=== PATIENT | male | born 1945 | race Caucasian/White ===

== ENCOUNTER 2017-10-26 14:16 | Inpatient (IN) | payer MEDICARE, OTHER ==
[2017-10-26] MEDS ORDERED: SODIUM CHLORIDE 0.9% 1,000 ML IV ONE (14:44)
--- NOTE | 2017-10-26 14:47 | ED Physician Documentation ---
PD HPI DYSPNEA - Stated complaint Stated Complaint: DIFF BREATHING - Chief complaint Chief Complaint: Resp - History obtained from History obtained from: Patient, Family - History of Present Illness Timing - onset: Enter time (0200), How many days ago (2) Timing - onset during: Rest Timing - duration: Days (2) Timing - details: Gradual onset, Still present Inciting event(s): URI Improved by: Rest, Sitting up Worsened by: Exertion, Laying flat, Coughing Associated symptoms: Cough Similar symptoms before: Diagnosis (The patient has had bronchitis previously) Recently seen: Not recently seen - Additional information Additional information: 72-year-old male smoker who is on no medications regularly has developed a cough and congestion over the past 2 weeks and over the past 3 days he has become acutely dyspneic and today he comes to the emergency department with dyspnea and tachycardia. Review of Systems Constitutional: reports: Fever, Chills Eyes: denies: Decreased vision Ears: denies: Ear pain Nose: reports: Rhinorrhea / runny nose, Congestion Throat: denies: Sore throat Cardiac: reports: Chest pain / pressure. denies: Palpitations Respiratory: reports: Dyspnea, Cough GI: denies: Abdominal Pain, Nausea, Vomiting : denies: Dysuria PD PAST MEDICAL HISTORY - Past Medical History Past Medical History: No HEENT: Chronic hearing loss - Past Surgical History Past Surgical History: No - Present Medications Home Medications: Ambulatory Orders Medication Instructions Recorded Confirmed No Known Home Medications [No 10/26/17 10/26/17 Known Home Medications] - Allergies Allergies/Adverse Reactions: Allergies Allergy/AdvReac Type Severity Reaction Status Date / Time No Known Drug Allergies Allergy Verified 10/26/17 14:21 - Social History Does the pt smoke?: Yes Smoking Status: Current every day smoker Does the pt drink ETOH?: No Does the pt have substance abuse?: No - Immunizations Immunizations are current?: No - POLST Patient has POLST: No PD ED PE NORMAL - Vitals Vital signs reviewed: Yes (tachy ) - General General: Alert and oriented X 3, No acute distress, Well developed/nourished - HEENT HEENT: Atraumatic, PERRL, EOMI, Other (The left TM is clear the right is inflamed along the umbo and the umbo is rounded. ) - Neck Neck: Supple, no meningeal sign - Cardiac Cardiac: No murmur, Other (regular and tachy ) - Respiratory Respiratory: No respiratory distress, Other (diminished breath sounds and bibasiler rhonchi) - Abdomen Abdomen: Soft, Non tender - Back Back: No CVA TTP, No spinal TTP - Derm Derm: Normal color, Warm and dry, No rash - Extremities Extremities: No deformity, No edema, No calf tenderness / cord - Neuro Neuro: Alert and oriented X 3, advertising clerk 2-12 intact, No motor deficit, No sensory deficit, Normal speech Eye Opening: Spontaneous Motor: Obeys Commands Verbal: Oriented GCS Score: 15 - Psych Psych: Normal mood, Normal affect Results - Vitals Vitals: Vital Signs - 24 hr 10/26/17 10/26/17 14:21 15:23 Temperature 37.2 C Heart Rate 153 H 125 H Respiratory 20 18 Rate Blood Pressure 109/62 104/57 L O2 Saturation 94 92 Oxygen O2 Source Room air - EKG (time done) 1424 Rhythm: Sinus tachycardia (148), LAE QRS: Low voltage Other comments: Other comments (RV) Compare to prior EKG: Old EKG unavailable Computer interpretation: Agree with computer - Labs Labs: Laboratory Tests 10/26/17 10/26/17 10/26/17 14:38 14:38 14:38 WBC 16.8 H RBC 5.52 Hgb 17.0 Hct 50.0 MCV 90.6 MCH 30.8 MCHC 34.0 RDW 13.0 Plt Count 187 MPV 8.8 Neut # 14.6 H Lymph # 0.7 L Ziebach # 1.4 H Eos # 0.0 Baso # 0.0 Absolute Nucleated RBC 0.00 Nucleated RBC % 0.0 Sodium 129 L Potassium 4.1 Chloride 91 L Carbon Dioxide 23 Anion Gap 15.0 H BUN 20 Creatinine 1.1 Estimated GFR (MDRD) 66 L Glucose 126 H Calcium 8.8 Total Bilirubin 1.6 H AST 22 ALT 12 Alkaline Phosphatase 60 Troponin I < 0.04 B-Natriuretic Peptide Total Protein 7.5 Albumin 3.7 Globulin 3.8 Albumin/Globulin Ratio 1.0 Lipase 180 H 10/26/17 14:38 WBC RBC Hgb Hct MCV MCH MCHC RDW Plt Count MPV Neut # Lymph # Ziebach # Eos # Baso # Absolute Nucleated RBC Nucleated RBC % Sodium Potassium Chloride Carbon Dioxide Anion Gap BUN Creatinine Estimated GFR (MDRD) Glucose Calcium Total Bilirubin AST ALT Alkaline Phosphatase Troponin I B-Natriuretic Peptide 75 Total Protein Albumin Globulin Albumin/Globulin Ratio Lipase - Rads (name of study) 2 view chest Radiology: Prelim report reviewed (Impression: Multifocal infiltrates with masslike consolidation in the left upper lobe; follow-up is recommended to confirm complete clearing. CT scan may be helpful if clinical suspicion is high.), EMP read indepedently, See rad report Procedures - IVC sono (time) 1440 Bedside IVC sono: IVC measures (cm) (1.3), IVC collapsed c insp (cm) (complete) , Dehydration (est 1 ltier down.) PD MEDICAL DECISION MAKING - ED course Complexity details: reviewed results, re-evaluated patient, considered differential, d/w patient, d/w family ED course: 72-year-old male presents with acute dyspnea for 2 days duration with an upper respiratory tract infection. He is found to be in a sinus tachycardia and he is mildly dehydrated he is initially administered saline 1 L bolus and a two- view chest x-ray is obtained as well as blood work. IV is begun. He has extensive infiltrate on CXR and his tachycardia responds to a fluid bolus. Departure - Departure Disposition: [facility] DC/Xfer Clinical Impression: Dehydration Pneumonia Qualifiers: Pneumonia type: due to unspecified organism Laterality: left Lung location: upper lobe of lung Qualified Code(s): J18.1 - Lobar pneumonia, unspecified organism Condition: Serious
[2017-10-26 14:56] LABS: BASOPHILS % (AUTO) 0.3 %; LYMPHOCYTES # (AUTO) 0.7 10^3/uL (1.5-3.5); LYMPHOCYTES % (AUTO) 4.2 %; MEAN CORPUSCULAR HEMOGLOBIN 30.8 pg (27.0-31.0); MEAN CORPUSCULAR VOLUME 90.6 fL (80.0-94.0); MEAN PLATELET VOLUME 8.8 fL (7.4-11.4); MONOCYTES # (AUTO) 1.4 10^3/uL (0.0-1.0); MONOCYTES % (AUTO) 8.5 %; NEUTROPHILS # (AUTO) 14.6 10^3/uL (1.5-6.6); PLT - PLATELET COUNT 187 10^3/uL (130-450); RED BLOOD COUNT 5.52 10^6/uL (4.70-6.10); WHITE BLOOD COUNT 16.8 x10^3/uL (4.8-10.8)
[2017-10-26 15:13] LABS: ALBUMIN 3.7 g/dL (3.2-5.5); BILIRUBIN,TOTAL 1.6 mg/dL (0.2-1.0); CALCIUM 8.8 mg/dL (8.5-10.3); CREATININE 1.1 mg/dL (0.6-1.2); TOTAL PROTEIN 7.5 g/dL (6.7-8.2)
--- NOTE | 2017-10-26 15:32 | XRAY Report ---
EXAM: CHEST RADIOGRAPHY EXAM DATE: 10/26/2017 03:11 PM. CLINICAL HISTORY: Cough dyspnea bibasilar rhonchi. COMPARISON: None. TECHNIQUE: 2 views. FINDINGS: Lungs/Pleura: Hyperexpanded with flattened diaphragm typical for COPD. Prominent multifocal infiltrat es in the left upper lobe with masslike consolidation in the lateral left upper lung zone. Clear righ t lung. No definite effusion. No pneumothorax. Mediastinum: Heart and mediastinal contours are unremarkable. Upper lobe vessels not distended. Other: None. IMPRESSION: Multifocal infiltrates with masslike consolidation in the left upper lobe; follow-up is r ecommended to confirm complete clearing. CT scan may be helpful if clinical suspicion is high. REGGIE Referring Provider Line: [phone] SITE ID: [id number]
[2017-10-26] MEDS ORDERED: PROCHLORPERAZINE 10 MG/2 ML VIAL IVP PRN (16:16)
[2017-10-26] MEDS ORDERED: TEMAZEPAM 15 MG CAPSULE PO PRN (16:16)
[2017-10-26] MEDS ORDERED: oxyCODONE 5 MG TABLET PO PRN (16:16)
--- NOTE | 2017-10-26 16:43 | HISTORY & PHYSICAL EXAMINATION ---
Chief Complaint - Chief Complaint Chief Complaint: shortness of breath, cough History of Present Illness - Admitted From Admitted From:: Home - History of Present Illness HPI Comment/Other: Mr. Tobin Trevizo is a very pleasant 72-year-old male who has a history of cough for about 2 weeks. He has been having increasing shortness of breath as well in about 3-4 days ago the cough became very bad and he had a great deal of difficulty catching his breath. His son brought him into the emergency room today and he was found to have a left pneumonia via chest x-ray. He has white blood cell count of 16.8 and he is tachycardic. History - Past Medical History Cardiovascular: reports: None (Patient is remarkably healthy denies any past medical history of any significance. 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 - Substance History Use: Uses substance without health or social issues: NONE Dependence: Experiences withdrawal or developed tolerances: Tobacco Tobacco Details: Cigarettes - POLST Patient has POLST: No POLST Status: Full Code (The patient has been in recovery for 39 years) Meds/Allgy - Home Medications Home Medications: Ambulatory Orders Medication Instructions Recorded Confirmed No Known Home Medications [No 10/26/17 10/26/17 Known Home Medications] - Allergies Allergies/Adverse Reactions: Allergies Allergy/AdvReac Type Severity Reaction Status Date / Time No Known Drug Allergies Allergy Verified 10/26/17 14:21 Review of Systems - Constitutional Constitutional: reports: Chills, Weakness, Poor appetite. denies: Fatigue, Fever - Eyes Eyes: denies: Pain, Blurred vision, Dipolpia - Ears, Nose & Throat Ears, Nose & Throat: denies: Ear pain, Hearing loss, Tinnitus, Vertigo, Nasal discharge - Cardiovascular Cariovascular: denies: Irregular heart rate, Palpitations, Chest pain, Edema - Respiratory Respiratory: reports: Cough, Sputum production, SOB at rest, SOB with exertion. denies: Wheezing, Hemoptysis, Orthopnea - Gastrointestinal Gastrointestinal: denies: Abdominal pain, Abdominal distention, Constipation, Diarrhea, Change in bowel habits, Rectal bleeding - Genitourinary Genitourinary: denies: Dysuria, Frequency, Urgency, Hematuria - Musculoskeletal Musculoskeletal: denies: Muscle pain, Back pain, Muscle aches, Stiffness, Muscle weakness, Gout, Joint pain - Integumentary Integumentary: denies: Rash, Pruritis, Lesions, Dryness - Neurological Neurological: denies: General weakness, Focal weakness, Headache, Dizziness, Numbness, Memory problems, Abnormal gait - Psychiatric Psychiatric: denies: Depression, Anxiety, Suicidal, Delusions - Endocrine Endocrine: denies: Polyuria, Polydypsia, Polyphagia - Hematologic/Lymphatic Hematologic/Lymphatic: denies: Anemia, Bruising, Petechiae, Lymphadenopathy - All Other Systems All Other Systems: reports: Reviewed and negative Exam - Vital Signs Reviewed Vital Signs: Yes Vital Signs: Vital Signs x48h Temp Pulse Resp BP Pulse Ox 10/26/17 16:25 37.4 C 118 H 18 102/50 L 92 10/26/17 15:23 125 H 18 104/57 L 92 10/26/17 14:21 37.2 C 153 H 20 109/62 94 - Physical Exam General Appearance: positive: Alert, Mild distress Eyes Bilateral: positive: Normal inspection, PERRL, EOMI, No lid inflammation, Conjunctivae nml, No scleral icterus ENT: positive: ENT inspection nml, Pharynx nml, No signs of dehydration. negative: Purulent nasal drainage Neck: positive: Nml inspection, Thyroid nml, No JVD, Trachea midline. negative : Thyromegaly Respiratory: positive: Chest non-tender, Rhonchi. negative: Wheezes, Rales Cardiovascular: positive: Regular rate & rhythm, No murmur, No gallop. negative : Tachycardia Peripheral Pulses: positive: 1+ Abdomen: positive: Non-tender, No organomegaly, Nml bowel sounds, No distention. negative: Tenderness, Guarding, Rebound Back: positive: Nml inspection. negative: CVA tenderness (R), CVA tenderness (L ) Skin: positive: Color nml, No rash, Warm, Dry. negative: Cyanosis Extremities: positive: Non-tender, Full ROM, Nml appearance, No pedal edema Neurologic/Psychiatric: positive: Oriented x3, CN's nml (2-12), Motor nml, Sensation nml, Mood/affect nml Conclusion/Plan - Problem List (1) Pneumonia Conclusion/Plan: We will start the patient on ceftriaxone and azithromycin and give him IV fluids for rehydration. We will continue with nebulizer treatments and supplemental oxygen as needed.We will monitor chest x-rays and electrolytes and address any other issues as they arise. Qualifiers: Pneumonia type: due to unspecified organism Laterality: left Lung location: upper lobe of lung Qualified Code(s): J18.1 - Lobar pneumonia, unspecified organism (2) Dehydration Conclusion/Plan: We will gently rehydrate the patient. - Lab Results Lab results reviewed: Yes Fish Bones: 10/26/17 14:38 10/26/17 14:38 - Diagnostic Imaging Results Diagnostic Imaging Results: positive: Final report reviewed Diagnostic Imaging Results Comments: EXAM: CHEST RADIOGRAPHY EXAM DATE: 10/26/2017 03:11 PM. CLINICAL HISTORY: Cough dyspnea bibasilar rhonchi. COMPARISON: None. TECHNIQUE: 2 views. FINDINGS: Lungs/Pleura: Hyperexpanded with flattened diaphragm typical for COPD. Prominent multifocal infiltrates in the left upper lobe with masslike consolidation in the lateral left upper lung zone. Clear right lung. No definite effusion. No pneumothorax. Mediastinum: Heart and mediastinal contours are unremarkable. Upper lobe vessels not distended. Other: None. IMPRESSION: Multifocal infiltrates with masslike consolidation in the left upper lobe; follow-up is recommended to confirm complete clearing. CT scan may be helpful if clinical suspicion is high. - EKG Results EKG Interpreted Independently: Yes EKG Comparison: No prior EKG Core Measures - Anticipated LOS I expect patient to be DC'd or transferred within 96 hours.: Yes - DVT/VTE - Prophylaxis VTE/DVT Device ordered at admit?: Yes
[2017-10-26] MEDS ORDERED: SODIUM CHLORIDE 0.9% 250 ML IV ONE (18:24)
[2017-10-26] MEDS: AZITHROMYCIN INJ 500 MG in SODIUM CHLORIDE 0.9% 250 ML IV SCH (18:25)
[2017-10-26] MEDS ORDERED: SODIUM CHLORIDE FLUSH 0.9% 10 ML SYRINGE ONE (18:27)
[2017-10-26] MEDS ORDERED: IPRATROPIUM/ALBUTEROL 3 ML NEB INH PRN (19:00)
[2017-10-26] MEDS: cefTRIAXone 2 GM in SODIUM CHLORIDE 0.9% MINIBAG 100 ML IV SCH (19:30)
[2017-10-26] MEDS: D5.45NS W/20 MEQ KCL 1,000 ML IV SCH (20:20)
[2017-10-26] MEDS: SODIUM CHLORIDE FLUSH 0.9% 10 ML SYRINGE IVP SCH (20:23)
[2017-10-27] MEDS: D5.45NS W/20 MEQ KCL 1,000 ML IV SCH ×3 (04:31→19:21)
[2017-10-27] MEDS: SODIUM CHLORIDE FLUSH 0.9% 10 ML SYRINGE IVP SCH ×3 (04:32→20:04)
[2017-10-27 06:13] LABS: BASOPHILS % (AUTO) 0.1 %; HGB - HEMOGLOBIN 14.4 g/dL (14.0-18.0); LYMPHOCYTES # (AUTO) 0.5 10^3/uL (1.5-3.5); LYMPHOCYTES % (AUTO) 4.6 %; MEAN CORPUSCULAR HEMOGLOBIN 30.6 pg (27.0-31.0); MEAN CORPUSCULAR HGB CONC 33.3 g/dL (32.0-36.0); MEAN PLATELET VOLUME 9.7 fL (7.4-11.4); MONOCYTES # (AUTO) 0.9 10^3/uL (0.0-1.0); MONOCYTES % (AUTO) 8.5 %; NEUTROPHILS # (AUTO) 9.1 10^3/uL (1.5-6.6); NEUTROPHILS % (AUTO) 86.8 %; PLT - PLATELET COUNT 165 10^3/uL (130-450); RED CELL DISTRIBUTION WIDTH 13.2 % (12.0-15.0); WHITE BLOOD COUNT 10.4 x10^3/uL (4.8-10.8)
[2017-10-27 06:24] LABS: CALCIUM 7.8 mg/dL (8.5-10.3); CREATININE 0.8 mg/dL (0.6-1.2)
[2017-10-27] MEDS ORDERED: SODIUM CHLORIDE 0.9% 500 ML IV ONE ×2 (08:02→09:18)
[2017-10-27] MEDS ORDERED: ACETAMINOPHEN 325 MG TABLET PO PRN (08:03)
[2017-10-27] MEDS: POLYETHYLENE GLYCOL 3350 17 GM PACKET PO SCH (08:07)
[2017-10-27] MEDS: guaiFENesin 600 MG TABLET PO SCH ×2 (08:22→21:49)
[2017-10-27] MEDS: SODIUM CHLORIDE FLUSH 0.9% 10 ML SYRINGE IVP PRN ×2 (08:23→11:29)
[2017-10-27] MEDS ORDERED: IOPAMIDOL-300 100 ML VIAL ONE (12:32)
[2017-10-27] MEDS ORDERED: IOPAMIDOL-300 100 ML VIAL IVP ONE (12:53)
[2017-10-27] MEDS: IPRATROPIUM/ALBUTEROL 3 ML NEB INH SCH ×4 (15:24→19:35)
[2017-10-27] MEDS: cefTRIAXone 2 GM in SODIUM CHLORIDE 0.9% MINIBAG 100 ML IV SCH (17:01)
[2017-10-27] MEDS: AZITHROMYCIN INJ 500 MG in SODIUM CHLORIDE 0.9% 250 ML IV SCH (17:43)
[2017-10-27] MEDS: SODIUM CHLORIDE 0.9% 1,000 ML IV SCH (17:43)
--- NOTE | 2017-10-27 18:04 | PROVIDER PROGRESS NOTE ---
Assessment/Plan - Problem List (1) CAP (community acquired pneumonia) Qualifiers: Laterality: left Lung location: upper lobe of lung Qualified Code(s): J18.1 - Lobar pneumonia, unspecified organism Assessment/Plan: Patient presented with cough, shortness of breath, tachycardic with low grade fever. CXR showed multifocal infiltrates in the left upper lobe CT today shows extensive left upper lobe infiltrate Patient on 4L of O2 and continues to be tachypnic, tachycardic and borderline hypotensive WBC improved Patient states he feels better but still coughing Blood cx negative Ceftriaxone and Azithromycin day 2 Continue supplemental O2 Continue IVFs and IV abx Monitor (2) COPD exacerbation Assessment/Plan: Patient has emphysema and is a current smoker Patient placed on Duonebs and IV abx for COPD exacerbation Today will start prednisone On 3L O2 Slightly better today (3) Pulmonary nodule Assessment/Plan: [address] in left lower lobe Given history of tobacco abuse high likelihood of malignancy Patient will need outpatient biopsy Discussed with patient and his (4) Dehydration Assessment/Plan: Improving with IVfs Patient still borderline hypotensive Na improved but still low (5) Tobacco abuse Assessment/Plan: Patient counseled and offered nicotine patch - Current Meds Current Meds: Current Medications Generic Name Dose Route Start Last Admin Trade Name Freq PRN Reason Stop Dose Admin Albuterol/Ipratropium 3 ml 10/26/17 19:00 10/27/17 05:38 Duoneb INH 3 ml RTQ4H PRN Administration Wheezing Albuterol/Ipratropium 3 ml 10/27/17 10:00 10/27/17 15:25 Duoneb INH 3 ml RTQID CHARLES Administration Guaifenesin 600 mg 10/27/17 09:00 10/27/17 08:22 Mucinex PO 600 mg BID CHALRES Administration Azithromycin 500 mg/ Sodium 250 mls @ 250 mls/hr 10/26/17 19:00 10/27/17 17: 43 Chloride IV 250 mls/hr Q24H CHARLES Administration Ceftriaxone Sodium 2 gm/ 100 mls @ 200 mls/hr 10/26/17 18:00 10/27/17 17:43 Sodium Chloride IV Infused Q24H CHARLES Infusion Potassium Chloride/Dextrose/Sod Cl 1,000 mls @ 125 mls/hr 10/26/17 19:00 17:05 D5.45ns W/20 Meq Kcl IV 0 mls/hr .Q8H CHARLES Infusion Sodium Chloride 1,000 mls @ 125 mls/hr 10/27/17 18:00 10/27/17 17:43 Normal Saline 0.9% IV 125 mls/hr .Q8H CHARLES Administration Polyethylene Glycol 17 gm 10/27/17 09:00 10/27/17 08:07 Miralax PO Not Given DAILY CHARLES Sodium Chloride 10 ml 10/26/17 16:16 10/27/17 11:29 Normal Saline Flush 0.9% IVP 10 ml PRN PRN Administration NEEDED PER PROVIDER ORDERS Sodium Chloride 10 ml 10/26/17 22:00 10/27/17 13:38 Normal Saline Flush 0.9% IVP Not Given Q8HR CHARLES - Lab Result Fish Bone Diagrams: 10/27/17 05:18 10/27/17 05:18 - Diagnostic Imaging Results Diagnostic Imaging Results: Final report reviewed - Additional Planning Condition/Complexity: Guarded My Orders: My Active Orders 10/27/17 08:03 Acetaminophen [Tylenol] 650 mg PO Q4HR PRN 10/27/17 09:00 guaiFENesin [Mucinex] 600 mg PO BID 10/27/17 10:00 Ipratropium/Albuterol [Duoneb] 3 ml INH RTQID 10/27/17 13:00 Chest Angio (PE) [CT] Stat 10/27/17 18:00 Sodium Chloride 0.9% [Normal Saline 0.9%] 1,000 ml IV 125 mls/hr predniSONE [Deltasone] 40 mg PO DAILYWM Plan Discussed with:: Patient, Family Time Spent: 31-60 minutes Subjective - Subjective Patient Reports: Cough (Productive), Shortness of Breath (With exertion), Other (Generalized weakness, no fever or chills.) Nursing Reports: No Complaints Objective Vital Signs: Vital Signs - 24 hr 10/26/17 10/27/17 10/27/17 17:48 01:59 05:43 Temperature 37.0 C 36.7 C Heart Rate 118 H Heart Rate [ 123 H 116 H Brachial] Respiratory 20 18 20 Rate Blood Pressure [Left Brachial artery] Blood Pressure 109/64 128/44 L [Right Brachial artery] O2 Saturation 94 93 10/27/17 10/27/1718 07:48 07:58 09:16 Temperature 37.5 C 37.7 C H 37.0 C Heart Rate Heart Rate [ 122 H 120 H 119 H Brachial] Respiratory 18 24 22 Rate Blood Pressure 100/46 L 102/49 L [Left Brachial artery] Blood Pressure 97/46 L [Right Brachial artery] O2 Saturation 90 L 91 L 94 10/27/17 10/27/17 10/27/17 10:42 15:02 15:26 Temperature 37.1 C 37.2 C Heart Rate 113 H Heart Rate [ 112 H 106 H Brachial] Respiratory 23 22 22 Rate Blood Pressure 100/47 L [Left Brachial artery] Blood Pressure 106/46 L [Right Brachial artery] O2 Saturation 94 96 10/27/17 15:49 Temperature 36.7 C Heart Rate Heart Rate [ 106 H Brachial] Respiratory 24 Rate Blood Pressure [Left Brachial artery] Blood Pressure 106/46 L [Right Brachial artery] O2 Saturation 92 Oxygen O2 Source Nasal cannula I&O (Last 24 Hrs): Intake and Output Totals x24h 10/25/17 10/26/17 10/27/17 23:59 23:59 23:59 Intake Total 120.214 1355.667 Balance 949.948 9245.667 General: Alert, Cooperative, Moderate distress (Tachypnic and appears to be in respiratory distress) HEENT: Atraumatic, PERRLA, EOMI, Other (dry mucus membranes) Neck: Supple, No JVD, No thyromegaly, +2 carotid pulse wo bruit, No LAD Lymphatic: no adenopathy Neuro: Alert, Non Focal, CN 2-12 Grossly Intact, Oriented Times 3 Cardiovascular: Regular rate, No murmurs, Other (Tachycardic) Respiratory: Chest non-tender, Wheezes (Scattered bilaterally), Rales (right base), Rhonchi (Left lung upper lobe) Abdomen: Normal bowel sounds, Soft, No tenderness, No hepatospenomegaly Extremities: No clubbing, No cyanosis, No edema, Normal pulses Skin: No rashes, No breakdown, No significant lesion - Results Results: Laboratory Results WBC 10.4 x10^3/uL (4.8-10.8) 10/27/17 05:18 RBC 4.70 10^6/uL (4.70-6.10) 10/27/17 05:18 Hgb 14.4 g/dL (14.0-18.0) 10/27/17 05:18 Hct 43.2 % (42.0-52.0) 10/27/17 05:18 MCV 92.0 fL (80.0-94.0) 10/27/17 05:18 MCH 30.6 pg (27.0-31.0) 10/27/17 05:18 MCHC 33.3 g/dL (32.0-36.0) 10/27/17 05:18 RDW 13.2 % (12.0-15.0) 10/27/17 05:18 Plt Count 165 10^3/uL (130-450) 10/27/17 05:18 MPV 9.7 fL (7.4-11.4) 10/27/17 05:18 Neut # 9.1 10^3/uL (1.5-6.6) H 10/27/17 05:18 Lymph # 0.5 10^3/uL (1.5-3.5) L 10/27/17 05:18 [place] # 0.9 10^3/uL (0.0-1.0) 10/27/17 05:18 Eos # 0.0 10^3/uL (0.0-0.7) 10/27/17 05:18 Baso # 0.0 10^3/uL (0.0-0.1) 10/27/17 05:18 Absolute Nucleated RBC 0.00 x10^3/uL 10/27/17 05:18 Nucleated RBC % 0.0 /100WBC 10/27/17 05:18 Sodium 132 mmol/L (135-145) L 10/27/17 05:18 Potassium 4.4 mmol/L (3.5-5.0) 10/27/17 05:18 Chloride 99 mmol/L (101-111) L 10/27/17 05:18 Carbon Dioxide 24 mmol/L (21-32) 10/27/17 05:18 Anion Gap 9.0 (6-13) 10/27/17 05:18 BUN 17 mg/dL (6-20) 10/27/17 05:18 Creatinine 0.8 mg/dL (0.6-1.2) 10/27/17 05:18 Estimated GFR (MDRD) 95 (>89) 10/27/17 05:18 Glucose 139 mg/dL (70-100) H 10/27/17 05:18 Calcium 7.8 mg/dL (8.5-10.3) L 10/27/17 05:18 Total Bilirubin 1.6 mg/dL (0.2-1.0) H 10/26/17 14:38 AST 22 IU/L (10-42) 10/26/17 14:38 ALT 12 IU/L (10-60) 10/26/17 14:38 Alkaline Phosphatase 60 IU/L (42-121) 10/26/17 14:38 Troponin I < 0.04 ng/mL (<0.49) 10/26/17 14:38 B-Natriuretic Peptide 75 pg/mL (5-100) 10/26/17 14:38 Total Protein 7.5 g/dL (6.7-8.2) 10/26/17 14:38 Albumin 3.7 g/dL (3.2-5.5) 10/26/17 14:38 Globulin 3.8 g/dL (2.1-4.2) 10/26/17 14:38 Albumin/Globulin Ratio 1.0 (1.0-2.2) 10/26/17 14:38 Lipase 180 U/L (22-51) H 10/26/17 14:38
[2017-10-27] MEDS: predniSONE 20 MG TABLET PO SCH (19:24)
--- NOTE | 2017-10-27 19:32 | CT Report ---
DATE OF SERVICE: 10/27/2017 CT PULMONARY ANGIOGRAM: 10/27/2017 CLINICAL INDICATION: Respiratory distress, hypoxia. Axial CT images of the chest were obtained with 66 mL of Isovue 300 intravenously. Sagittal and coronal 3-D reconstructions were performed. COMPARISON: Chest x-ray 10/26/2017. Heart and great vessels demonstrate atherosclerotic calcification. Mild left hilar and mediastinal lymphadenopathy is present, likely reactive. There is extensive consolidation in the posterior left upper lobe and lingula, superimposed upon background emphysema. A small left pleural effusion is present. There is opacification of bronchi in the left lower lobe, likely representing mucous plugging. There is no evidence of pulmonary embolus. There is a 10 mm nodule in the posterolateral left lower lobe subpleurally (axial image 147). No pneumothorax is present. Limited evaluation of upper abdominal structures demonstrates normal adrenal glands. Osseous structures demonstrate degenerative changes. IMPRESSION: Extensive left upper lobe infiltrate, with likely reactive adenopathy. Small left effusion. Emphysema. A 10 mm left lower lobe nodule. Followup following resolution of the pneumonia is recommended. Given the size, consider PET/CT scan to evaluate for metabolic activity. TD: 10/27/2017 20:23
[2017-10-28] MEDS: SODIUM CHLORIDE 0.9% 1,000 ML IV SCH ×3 (02:33→20:28)
[2017-10-28] MEDS: SODIUM CHLORIDE FLUSH 0.9% 10 ML SYRINGE IVP SCH ×3 (02:59→19:06)
[2017-10-28 06:21] LABS: HGB - HEMOGLOBIN 13.2 g/dL (14.0-18.0); LYMPHOCYTES # (AUTO) 0.4 10^3/uL (1.5-3.5); LYMPHOCYTES % (AUTO) 4.1 %; MEAN CORPUSCULAR HEMOGLOBIN 30.3 pg (27.0-31.0); MEAN CORPUSCULAR VOLUME 91.8 fL (80.0-94.0); MONOCYTES # (AUTO) 0.8 10^3/uL (0.0-1.0); MONOCYTES % (AUTO) 7.6 %; NEUTROPHILS # (AUTO) 8.8 10^3/uL (1.5-6.6); NEUTROPHILS % (AUTO) 88.3 %; PLT - PLATELET COUNT 162 10^3/uL (130-450); RED BLOOD COUNT 4.36 10^6/uL (4.70-6.10); RED CELL DISTRIBUTION WIDTH 13.3 % (12.0-15.0)
[2017-10-28 06:31] LABS: CALCIUM 7.4 mg/dL (8.5-10.3); CREATININE 0.6 mg/dL (0.6-1.2)
[2017-10-28] MEDS: IPRATROPIUM/ALBUTEROL 3 ML NEB INH SCH ×4 (08:00→18:31)
[2017-10-28] MEDS: D5.45NS W/20 MEQ KCL 1,000 ML IV SCH (08:43)
[2017-10-28] MEDS: predniSONE 20 MG TABLET PO SCH (08:45)
[2017-10-28] MEDS: guaiFENesin 600 MG TABLET PO SCH ×2 (08:45→20:28)
[2017-10-28] MEDS: POLYETHYLENE GLYCOL 3350 17 GM PACKET PO SCH (08:46)
[2017-10-28] MEDS: cefTRIAXone 2 GM in SODIUM CHLORIDE 0.9% MINIBAG 100 ML IV SCH (17:26)
--- NOTE | 2017-10-28 17:47 | PROVIDER PROGRESS NOTE ---
Assessment/Plan - Problem List (1) CAP (community acquired pneumonia) Qualifiers: Laterality: left Lung location: upper lobe of lung Qualified Code(s): J18.1 - Lobar pneumonia, unspecified organism Assessment/Plan: Patient presented with cough, shortness of breath, tachycardic with low grade fever. CXR showed multifocal infiltrates in the left upper lobe CT today shows extensive left upper lobe infiltrate Patient feeling much better today down to 1L of O2 WBC improved but patient still having a lot of coughing BP improved Blood cx negative Ceftriaxone and Azithromycin day 3 Continue supplemental O2 Continue IVFs and IV abx Monitor (2) COPD exacerbation Assessment/Plan: Patient has emphysema and is a current smoker Patient placed on Duonebs, IV abx and prednisone for COPD exacerbation On 1L O2 Improving (3) Pulmonary nodule Assessment/Plan: [address] in left lower lobe Given history of tobacco abuse high likelihood of malignancy Patient will need outpatient biopsy Discussed with patient and his (4) Dehydration Assessment/Plan: Improving with IVfs BP improved today Na improved (5) Tobacco abuse Assessment/Plan: Patient counseled and offered nicotine patch - Current Meds Current Meds: Current Medications Generic Name Dose Route Start Last Admin Trade Name Freq PRN Reason Stop Dose Admin Albuterol/Ipratropium 3 ml 10/26/17 19:00 10/27/17 05:38 Duoneb INH 3 ml RTQ4H PRN Administration Wheezing Albuterol/Ipratropium 3 ml 10/27/17 10:00 10/28/17 15:18 Duoneb INH 3 ml RTQID CHARLES Administration Guaifenesin 600 mg 10/27/17 09:00 10/28/17 08:45 Mucinex PO 600 mg BID CHARLES Administration Azithromycin 500 mg/ Sodium 250 mls @ 250 mls/hr 10/26/17 19:00 10/27/17 18: 45 Chloride IV Infused Q24H CHARLES Infusion Ceftriaxone Sodium 2 gm/ 100 mls @ 200 mls/hr 10/26/17 18:00 10/28/17 17:26 Sodium Chloride IV 200 mls/hr Q24H CHARLES Administration Sodium Chloride 1,000 mls @ 125 mls/hr 10/27/17 18:00 10/28/17 17:29 Normal Saline 0.9% IV 0 mls/hr .Q8H CHARLES Infusion Polyethylene Glycol 17 gm 10/27/17 09:00 10/28/17 08:46 Miralax PO Not Given DAILY CHARLES Prednisone 40 mg 10/27/17 18:00 10/28/17 08:45 Deltasone PO 40 mg DAILYWM CHARLES Administration Sodium Chloride 10 ml 10/26/17 16:16 10/27/17 11:29 Normal Saline Flush 0.9% IVP 10 ml PRN PRN Administration NEEDED PER PROVIDER ORDERS Sodium Chloride 10 ml 10/26/17 22:00 10/28/17 12:01 Normal Saline Flush 0.9% IVP Not Given Q8HR CHARLES - Lab Result Fish Bone Diagrams: 10/28/17 05:50 10/28/17 05:50 - Diagnostic Imaging Results Diagnostic Imaging Results: Final report reviewed - Additional Planning Condition/Complexity: Improved My Orders: My Active Orders 10/27/17 18:00 Sodium Chloride 0.9% [Normal Saline 0.9%] 1,000 ml IV 125 mls/hr predniSONE [Deltasone] 40 mg PO DAILYWM 10/28/17 08:30 Echo Transthoracic Complete [ECHO] Routine Plan Discussed with:: Patient Time Spent: 31-60 minutes Subjective - Subjective Patient Reports: Feeling Better, Resting Comfortably, Cough (Still persistent), Shortness of Breath (improved) Nursing Reports: No Complaints Objective Vital Signs: Vital Signs - 24 hr 10/27/17 10/27/17 10/27/17 19:35 20:02 23:50 Temperature 37.1 C 36.9 C Heart Rate 108 H Heart Rate [ 114 H 99 Brachial] Respiratory 16 20 18 Rate Blood Pressure 104/40 L 99/49 L [Left Brachial artery] O2 Saturation 94 94 10/28/17 10/28/17 10/28/17 08:00 08:43 11:25 Temperature 36.5 C Heart Rate 95 96 Heart Rate [ 85 Brachial] Respiratory 20 18 20 Rate Blood Pressure 90/52 L [Left Brachial artery] O2 Saturation 94 10/28/17 10/28/17 15:18 15:40 Temperature 36.7 C Heart Rate 93 Heart Rate [ 98 Brachial] Respiratory 18 24 Rate Blood Pressure 111/52 L [Left Brachial artery] O2 Saturation 94 Oxygen O2 Source Nasal cannula I&O (Last 24 Hrs): Intake and Output Totals x24h 10/26/17 10/27/17 10/28/17 23:59 23:59 23:59 Intake Total 693.978 2969.667 4772.916 Balance 760.853 8294.667 1372.916 General: Alert, Oriented x3, Cooperative, Mild distress (respiratory with coughing) HEENT: Atraumatic, PERRLA, EOMI, Mucous membr. moist/pink Neck: Supple, No JVD, No thyromegaly, +2 carotid pulse wo bruit, No LAD Lymphatic: no adenopathy Neuro: Alert, Non Focal, CN 2-12 Grossly Intact, Oriented Times 3 Cardiovascular: Regular rate, Normal S1, Normal S2, No murmurs Respiratory: Chest non-tender, Wheezes (scattered), Rales (bases), Rhonchi ( left upper lung) Abdomen: Normal bowel sounds, Soft, No tenderness, No hepatospenomegaly Extremities: No clubbing, No cyanosis, No edema, Normal pulses, No tenderness/ swelling Skin: No rashes, No breakdown - Results Results: Laboratory Results WBC 10.0 x10^3/uL (4.8-10.8) 10/28/17 05:50 RBC 4.36 10^6/uL (4.70-6.10) L 10/28/17 05:50 Hgb 13.2 g/dL (14.0-18.0) L 10/28/17 05:50 Hct 40.0 % (42.0-52.0) L 10/28/17 05:50 MCV 91.8 fL (80.0-94.0) 10/28/17 05:50 MCH 30.3 pg (27.0-31.0) 10/28/17 05:50 MCHC 33.0 g/dL (32.0-36.0) 10/28/17 05:50 RDW 13.3 % (12.0-15.0) 10/28/17 05:50 Plt Count 162 10^3/uL (130-450) 10/28/17 05:50 MPV 9.0 fL (7.4-11.4) 10/28/17 05:50 Neut # 8.8 10^3/uL (1.5-6.6) H 10/28/17 05:50 Lymph # 0.4 10^3/uL (1.5-3.5) L 10/28/17 05:50 [place] # 0.8 10^3/uL (0.0-1.0) 10/28/17 05:50 Eos # 0.0 10^3/uL (0.0-0.7) 10/28/17 05:50 Baso # 0.0 10^3/uL (0.0-0.1) 10/28/17 05:50 Absolute Nucleated RBC 0.00 x10^3/uL 10/28/17 05:50 Nucleated RBC % 0.0 /100WBC 10/28/17 05:50 Sodium 132 mmol/L (135-145) L 10/28/17 05:50 Potassium 4.2 mmol/L (3.5-5.0) 10/28/17 05:50 Chloride 102 mmol/L (101-111) 10/28/17 05:50 Carbon Dioxide 23 mmol/L (21-32) 10/28/17 05:50 Anion Gap 7.0 (6-13) 10/28/17 05:50 BUN 14 mg/dL (6-20) 10/28/17 05:50 Creatinine 0.6 mg/dL (0.6-1.2) 10/28/17 05:50 Estimated GFR (MDRD) 132 (>89) 10/28/17 05:50 Glucose 140 mg/dL (70-100) H 10/28/17 05:50 Calcium 7.4 mg/dL (8.5-10.3) L 10/28/17 05:50 Total Bilirubin 1.6 mg/dL (0.2-1.0) H 10/26/17 14:38 AST 22 IU/L (10-42) 10/26/17 14:38 ALT 12 IU/L (10-60) 10/26/17 14:38 Alkaline Phosphatase 60 IU/L (42-121) 10/26/17 14:38 Troponin I < 0.04 ng/mL (<0.49) 10/26/17 14:38 B-Natriuretic Peptide 75 pg/mL (5-100) 10/26/17 14:38 Total Protein 7.5 g/dL (6.7-8.2) 10/26/17 14:38 Albumin 3.7 g/dL (3.2-5.5) 10/26/17 14:38 Globulin 3.8 g/dL (2.1-4.2) 10/26/17 14:38 Albumin/Globulin Ratio 1.0 (1.0-2.2) 10/26/17 14:38 Lipase 180 U/L (22-51) H 10/26/17 14:38
[2017-10-28] MEDS: AZITHROMYCIN INJ 500 MG in SODIUM CHLORIDE 0.9% 250 ML IV SCH (18:06)
[2017-10-29] MEDS: SODIUM CHLORIDE FLUSH 0.9% 10 ML SYRINGE IVP SCH (04:41)
[2017-10-29] MEDS: SODIUM CHLORIDE 0.9% 1,000 ML IV SCH (05:05)
[2017-10-29 06:20] LABS: BASOPHILS % (AUTO) 0.1 %; EOSINOPHILS % (AUTO) 0.1 %; HGB - HEMOGLOBIN 12.8 g/dL (14.0-18.0); LYMPHOCYTES # (AUTO) 1.1 10^3/uL (1.5-3.5); LYMPHOCYTES % (AUTO) 9.2 %; MEAN CORPUSCULAR HEMOGLOBIN 30.4 pg (27.0-31.0); MEAN CORPUSCULAR HGB CONC 33.3 g/dL (32.0-36.0); MEAN CORPUSCULAR VOLUME 91.2 fL (80.0-94.0); MONOCYTES # (AUTO) 1.1 10^3/uL (0.0-1.0); MONOCYTES % (AUTO) 9.2 %; NEUTROPHILS # (AUTO) 9.4 10^3/uL (1.5-6.6); NEUTROPHILS % (AUTO) 81.4 %; PLT - PLATELET COUNT 192 10^3/uL (130-450); WHITE BLOOD COUNT 11.5 x10^3/uL (4.8-10.8)
[2017-10-29 06:23] LABS: CALCIUM 7.3 mg/dL (8.5-10.3); CREATININE 0.6 mg/dL (0.6-1.2)
[2017-10-29] MEDS: IPRATROPIUM/ALBUTEROL 3 ML NEB INH SCH (07:56)
[2017-10-29] MEDS: predniSONE 20 MG TABLET PO SCH (08:25)
[2017-10-29] MEDS: guaiFENesin 600 MG TABLET PO SCH (08:25)
[2017-10-29] MEDS: POLYETHYLENE GLYCOL 3350 17 GM PACKET PO SCH (08:25)
--- NOTE | 2017-10-29 11:12 | Discharge Plan ---
Discharge Plan Disposition: Home, Self Care Condition: Fair Prescriptions: Albuterol Sulfate [Proair Respiclick] 90 mcg IH Q4HR PRN #1 aer.pow.ba PRN Reason: Dyspnea Fluticasone/Salmeterol [Advair 250-50 Diskus] 1 each IH BID #1 blst.w.dev guaiFENesin [Mucinex] 600 mg PO BID #30 tablet Levofloxacin [Levaquin] 500 mg PO DAILY #7 tablet predniSONE [Deltasone] 40 mg PO DAILYWM #20 tablet Diet: Regular Activity Restrictions: Activity as Tolerated Shower Restrictions: No Driving Restrictions: No Weight Bearing: Full Weight Additional Instructions or Follow Up instructions: You presented to the emergency department with shortness of breath and coughing. He was found to have a left upper lobe pneumonia and a COPD exacerbation. You have been treated in the hospital with IV antibiotics and steroids as well as nebulizer treatments. You have improved significantly but are still requiring oxygen. We are setting up home oxygen for you. You will need to use 2 L of home oxygen at rest and 4 L with exertion. We have also prescribed you an antibiotic called Levaquin which she will need to take for 7 days to complete treatment for pneumonia. You are also being prescribed prednisone which is a steroid and will help with your COPD he will need to take this for 10 days. In addition to this you are being prescribed albuterol inhaler which you should take as needed when you become increasingly short of breath or start wheezing. You are also being prescribed Advair which is a new medication for you that you should take twice a day to keep her lungs open and to make it easier for you to breathe going forward. I have also prescribed you Mucinex which is a cough suppressant to help with your coughing. While you were hospitalized we did do a CT of your chest which did reveal a 10 mm nodule in your left lower lung. This lesion is concerning for the possibility of malignancy and therefore needs to be biopsied. You need to follow-up with your primary care physician to set up a biopsy for this lesion. [place] to set up an appointment as soon as possible. I strongly recommend that you never smoke again. No Smoking: If you smoke, Please STOP! Call for help.
--- NOTE | 2017-10-29 12:11 | DISCHARGE SUMMARY ---
Discharge Summary Admit Date: 10/26/17 Discharge Date: 10/29/17 Discharging Provider: Christo Meyers MD Primary Care Provider: Neal Soto MD Code Status: Attempt Resuscitation Condition at Discharge: Fair Discharge Disposition: Home, Self Care - DIAGNOSES Admission Diagnoses: 1. Pneumonia 2. Dehydration Discharge Diagnoses with Status of Each Condition: 1. Community acquired pneumonia: Improving 2. COPD exacerbation: Improving 3. Pulmonary nodule: Stable 4. Dehydration: Improved 5. Tobacco abuse: Stable - HPI History of Present Illness: Mr. Tobin Trevizo is a very pleasant 72-year-old male who has a history of cough for about 2 weeks. He has been having increasing shortness of breath as well in about 3-4 days ago the cough became very bad and he had a great deal of difficulty catching his breath. His son brought him into the emergency room today and he was found to have a left pneumonia via chest x-ray. He has white blood cell count of 16.8 and he is tachycardic. We will start the patient on ceftriaxone and azithromycin and give him IV fluids for rehydration. We will continue with nebulizer treatments and supplemental oxygen as needed.We will monitor chest x-rays and electrolytes and address any other issues as they arise. - HOSPITAL COURSE Hospital Course: The patient presented with cough, shortness of air, tachycardia and low-grade fever. The patient's chest x-ray showed multifocal infiltrates in the left upper lobe. After initial treatment with IV antibiotics ceftriaxone and azithromycin the patient was not showing significant improvement and was requiring increasing amount of oxygen, was tachycardic and had a borderline blood pressure. CT angiogram of the lungs was ordered which showed extensive left upper lobe infiltrate and a 10 mm nodule in the left lower lobe. Patient was also started on prednisone, duo nebs and continued on IV antibiotics after day 2 the patient had significant improvement and was requiring less oxygen with decreasing shortness of air and coughing. The patient's tachycardia, tachypnea and blood pressure also improved. By day 3 the patient felt well enough to go home. Prior to discharge the patient did get tested for home O2. Patient was hypoxic at rest, with room air O2 sats of 88%, at rest with O2 at 2 L/min via nasal cannula the patient's sats improved to 92%. With exertion on 3 L/min nasal cannula the patient sat was 86% and finally on 4 L/min with exertion the patient sat was improved to 90%. I ordered home O2 at 2 L/min via nasal cannula at rest, and 4 L/min with exertion. The oxygen will be needed to treat his hypoxia from COPD and resolving pneumonia. The patient was discharged home with oral antibiotic Levaquin which he will continue for 7 additional days. He was also prescribed oral prednisone which she will take for 10 more days. The patient was given prescription for Advair and for albuterol as well as for Mucinex. The patient will follow up with a primary care physician in [place]. [place]. He will need to follow-up not only to ensure resolution of his pneumonia but also to be referred for PET CT and possible biopsy of his 10 mm lung nodule in his left lower lung. The patient was advised to quit smoking and we did explain to him that the pulmonary nodule could possibly be malignancy. - ALLERGIES Allergies/Adverse Reactions: Allergies Allergy/AdvReac Type Severity Reaction Status Date / Time No Known Drug Allergies Allergy Verified 10/26/17 14:21 - MEDICATIONS Home Medications: Ambulatory Orders Medication Instructions Recorded Confirmed Albuterol Sulfate [Proair 90 mcg IH Q4HR PRN #1 aer.pow.ba 10/29/17 Respiclick] Fluticasone/Salmeterol [Advair 1 each IH BID #1 blst.w.dev 10/29/17 250-50 Diskus] Levofloxacin [Levaquin] 500 mg PO DAILY #7 tablet 10/29/17 guaiFENesin [Mucinex] 600 mg PO BID #30 tablet 10/29/17 predniSONE [Deltasone] 40 mg PO DAILYWM #20 tablet 10/29/17 - PHYSICAL EXAM AT DISCHARGE General Appearance: positive: No acute distress, Alert Eyes Bilateral: positive: Normal inspection, PERRL, EOMI, No lid inflammation, Conjunctivae nml, No scleral icterus ENT: positive: ENT inspection nml, Pharynx nml, No signs of dehydration. negative: Purulent nasal drainage, Pharyngeal erythema, Oral lesions Neck: positive: Nml inspection, Thyroid nml, No JVD, Trachea midline. negative : Thyromegaly, Lymphadenopathy (R), Lymphadenopathy (L), Stiff neck, Carotid bruit, Tracheal deviation Respiratory: positive: Chest non-tender, No respiratory distress, Wheezes ( Scattered throughout lungs), Rhonchi (Left upper lobe) Cardiovascular: positive: No murmur, No gallop, Tachycardia Peripheral Pulses: positive: 2+ Abdomen: positive: Non-tender, No organomegaly, Nml bowel sounds, No distention. negative: Guarding, Rebound, Hepatomegaly Back: positive: Nml inspection. negative: CVA tenderness (R), CVA tenderness (L ) Skin: positive: Color nml, No rash, Warm. negative: Cyanosis, Diaphoresis Extremities: positive: Non-tender, Full ROM, Nml appearance, No pedal edema Neurologic/Psychiatric: positive: Oriented x3, CN's nml (2-12), Motor nml, Sensation nml, Mood/affect nml - LABS Result Diagrams: 10/29/17 05:29 10/29/17 05:29 Other Lab Results: Laboratory Results WBC 11.5 x10^3/uL (4.8-10.8) H 10/29/17 05: RBC 4.20 10^6/uL (4.70-6.10) L 10/29/17 05:29 Hgb 12.8 g/dL (14.0-18.0) L 10/29/17 05: Hct 38.3 % (42.0-52.0) L 10/29/17 05: MCV 91.2 fL (80.0-94.0) 10/29/17 05: MCH 30.4 pg (27.0-31.0) 10/29/17 05: MCHC 33.3 g/dL (32.0-36.0) 10/29/17 05: RDW 13.0 % (12.0-15.0) 10/29/17 05:29 Plt Count 192 10^3/uL (130-450) 10/29/17 05:29 MPV 9.0 fL (7.4-11.4) 10/29/17 05: Neut # 9.4 10^3/uL (1.5-6.6) H 10/29/17 05: Lymph # 1.1 10^3/uL (1.5-3.5) L 10/29/17 05:29 [place] # 1.1 10^3/uL (0.0-1.0) H 10/29/17 05:29 Eos # 0.0 10^3/uL (0.0-0.7) 10/29/17 05:29 Baso # 0.0 10^3/uL (0.0-0.1) 10/29/17 05:29 Absolute Nucleated RBC 0.01 x10^3/uL 10/29/17 05:29 Nucleated RBC % 0.0 /100WBC 10/29/17 05:29 Sodium 133 mmol/L (135-145) L 10/29/17 05:29 Potassium 3.5 mmol/L (3.5-5.0) 10/29/17 05:29 Chloride 101 mmol/L (101-111) 10/29/17 05:29 Carbon Dioxide 25 mmol/L (21-32) 10/29/17 05:29 Anion Gap 7.0 (6-13) 10/29/17 05:29 BUN 14 mg/dL (6-20) 10/29/17 05:29 Creatinine 0.6 mg/dL (0.6-1.2) 10/29/17 05:29 Estimated GFR (MDRD) 132 (>89) 10/29/17 05:29 Glucose 103 mg/dL (70-100) H 10/29/17 05:29 Calcium 7.3 mg/dL (8.5-10.3) L 10/29/17 05:29 Total Bilirubin 1.6 mg/dL (0.2-1.0) H 10/26/17 14:38 AST 22 IU/L (10-42) 10/26/17 14:38 ALT 12 IU/L (10-60) 10/26/17 14:38 Alkaline Phosphatase 60 IU/L (42-121) 10/26/17 14:38 Troponin I < 0.04 ng/mL (<0.49) 10/26/17 14:38 B-Natriuretic Peptide 75 pg/mL (5-100) 10/26/17 14:38 Total Protein 7.5 g/dL (6.7-8.2) 10/26/17 14:38 Albumin 3.7 g/dL (3.2-5.5) 10/26/17 14:38 Globulin 3.8 g/dL (2.1-4.2) 10/26/17 14:38 Albumin/Globulin Ratio 1.0 (1.0-2.2) 10/26/17 14:38 Lipase 180 U/L (22-51) H 10/26/17 14:38 - DIAGNOSTIC IMAGING Diagnostic Imaging Results: Final report reviewed Diagnostic Imaging Results Comments: CHEST RADIOGRAPHY EXAM DATE: 10/26/2017 03:11 PM. CLINICAL HISTORY: Cough dyspnea bibasilar rhonchi. COMPARISON: None. TECHNIQUE: 2 views. FINDINGS: Lungs/Pleura: Hyperexpanded with flattened diaphragm typical for COPD. Prominent multifocal infiltrates in the left upper lobe with masslike consolidation in the lateral left upper lung zone. Clear right lung. No definite effusion. No pneumothorax. Mediastinum: Heart and mediastinal contours are unremarkable. Upper lobe vessels not distended. Other: None. IMPRESSION: Multifocal infiltrates with masslike consolidation in the left upper lobe; follow-up is recommended to confirm complete clearing. CT scan may be helpful if clinical suspicion is high. EXAM: [id number] CT/CHTANG ([id number]) DATE OF SERVICE: 10/27/2017 CT PULMONARY ANGIOGRAM: 10/27/2017 CLINICAL INDICATION: Respiratory distress, hypoxia. Axial CT images of the chest were obtained with 66 mL of Isovue 300 intravenously. Sagittal and coronal 3-D reconstructions were performed. COMPARISON: Chest x-ray 10/26/2017. Heart and great vessels demonstrate atherosclerotic calcification. Mild left hilar and mediastinal lymphadenopathy is present, likely reactive. There is extensive consolidation in the posterior left upper lobe and lingula, superimposed upon background emphysema. A small left pleural effusion is present. There is opacification of bronchi in the left lower lobe, likely representing mucous plugging. There is no evidence of pulmonary embolus. There is a 10 mm nodule in the posterolateral left lower lobe subpleurally (axial image 147). No pneumothorax is present. Limited evaluation of upper abdominal structures demonstrates normal adrenal glands. Osseous structures demonstrate degenerative changes. IMPRESSION: Extensive left upper lobe infiltrate, with likely reactive adenopathy. Small left effusion. Emphysema. A 10 mm left lower lobe nodule. Followup following resolution of the pneumonia is recommended. Given the size, consider PET/CT scan to evaluate for metabolic activity. Echocardiogram Impression: The left ventricular size is normal. The left ventricular wall thickness is normal. Overall left ventricular systolic function is normal with a ejection fraction of 55-60%. Impaired relaxation consistent with grade 1 diastolic dysfunction. No regional wall motion abnormalities are seen. The right ventricular size is normal. The right ventricular systolic function is normal. The left atrial volume index is normal. The right atrial size is normal. The aortic valve is trileaflet. There is mild aortic valve sclerosis. There is no evidence of aortic stenosis. There is no evidence of aortic regurgitation. No mitral stenosis noted. No mitral regurgitation. Tricuspid valve appears structurally normal. No tricuspid stenosis. No tricuspid regurgitation. Pulmonic valve was not well visualized. There is no pericardial effusion noted. The intra-atrial septum appears normal. The intra- atrial septum is intact on color flow imaging. The aortic root is not well visualized. Approximately, it looks to be of normal diameter. The main pulmonary artery is not well seen. The inferior vena cava is dilated with greater than 50% inspiratory collapse which is suggestive of an estimated RAP of 8 mmHg. No mass or thrombus identified there is no pleural effusion noted. - FOLLOW UP Follow Up: Patient is being discharged with 7 additional days of Levaquin for his pneumonia. He is also being discharged with prednisone for 10 days for COPD exacerbation. Patient is prescribed albuterol, Advair and Mucinex. Patient will follow up with his primary care physician for a 10 mm nodule found in the left lower lobe of his lung. The patient needs a PET CT and may also need a biopsy of the nodule. - TIME SPENT Time Spent in Discharge (Minutes): 40
[2017-10-29 12:17] VITALS: BP 124/53
== END 2017-10-29 12:45 | disposition home or self-care (01) | DRG 195 ==
LOC: ED 14:16 → MS2 16:16
PROVIDERS: ADMIT Hospitalist; ATTEND Internal Medicine
DX: J18.1 Lobar pneumonia, unspecified organism (principal); J43.9 Emphysema, unspecified; F17.200 Nicotine dependence, unspecified, uncomplicated; R91.1 Solitary pulmonary nodule; E86.0 Dehydration; F17.210 Nicotine dependence, cigarettes, uncomplicated; I95.9 Hypotension, unspecified; R09.02 Hypoxemia
CPT/HCPCS: 36415; 71046; 71275; 80048; 80053; 83690; 83880; 84484; 85025; 87040; 93005; 93306; 94640; 94761; 96360; 99284

== ENCOUNTER 2017-11-18 12:43 | Outpatient (CLI) | payer MEDICARE ==
--- NOTE | 2017-11-18 15:25 | XRAY Report ---
TWO VIEW CHEST: 11/18/2017 CLINICAL INDICATION: Followup pneumonia and lung mass. COMPARISON: CT 10/27/2017, plain film 10/26/2017. FINDINGS: Frontal and lateral views of the chest demonstrate significant interval improvement in left upper lobe infiltrate. Residual posterior airspace disease is noted, best seen on the lateral view. The lungs remain hyperinflated, compatible with emphysema. The 10 mm left lower lobe nodule seen on CT is not well visualized on plain film. Again, consider PET CT to evaluate for metabolic activity. IMPRESSION: SIGNIFICANT INTERVAL IMPROVEMENT IN LEFT UPPER LOBE INFILTRATES, BUT PERSISTENT POSTERIOR AIRSPACE DISEASE IS SEEN ON THE LATERAL VIEW. TD: 11/18/2017 15:24
== END 2017-11-18 12:44 | disposition home or self-care (01) ==
LOC: DI 12:43
PROVIDERS: ATTEND Family Medicine
DX: J18.9 Pneumonia, unspecified organism (principal); J98.4 Other disorders of lung
CPT/HCPCS: 71046

== ENCOUNTER 2017-11-20 18:33 | Emergency (ER) | payer MEDICARE ==
[2017-11-20 19:01] LABS: BASOPHILS % (AUTO) 0.6 %; EOSINOPHILS # (AUTO) 0.1 10^3/uL (0.0-0.7); EOSINOPHILS % (AUTO) 2.5 %; HGB - HEMOGLOBIN 13.7 g/dL (14.0-18.0); LYMPHOCYTES # (AUTO) 0.9 10^3/uL (1.5-3.5); LYMPHOCYTES % (AUTO) 14.4 %; MEAN CORPUSCULAR HEMOGLOBIN 29.6 pg (27.0-31.0); MEAN CORPUSCULAR HGB CONC 32.7 g/dL (32.0-36.0); MEAN CORPUSCULAR VOLUME 90.4 fL (80.0-94.0); MEAN PLATELET VOLUME 7.4 fL (7.4-11.4); MONOCYTES # (AUTO) 0.5 10^3/uL (0.0-1.0); MONOCYTES % (AUTO) 7.9 %; NEUTROPHILS # (AUTO) 4.4 10^3/uL (1.5-6.6); NEUTROPHILS % (AUTO) 74.6 %; PLT - PLATELET COUNT 228 10^3/uL (130-450); RED BLOOD COUNT 4.64 10^6/uL (4.70-6.10); RED CELL DISTRIBUTION WIDTH 13.8 % (12.0-15.0); WHITE BLOOD COUNT 5.9 x10^3/uL (4.8-10.8)
[2017-11-20 19:10] LABS: ALBUMIN 3.6 g/dL (3.2-5.5); ALBUMIN/GLOBULIN RATIO 1.2 (1.0-2.2); BILIRUBIN,TOTAL 0.6 mg/dL (0.2-1.0); CALCIUM 8.7 mg/dL (8.5-10.3); CREATININE 0.8 mg/dL (0.6-1.2); TOTAL PROTEIN 6.5 g/dL (6.7-8.2)
[2017-11-20] MEDS ORDERED: MAG HYDROX/AL HYDROX/SIMETH 30 ML UDC PO STA (20:03)
[2017-11-20] MEDS ORDERED: LIDOCAINE VISCOUS 2% 15 ML UDC MM STA (20:03)
[2017-11-20] MEDS ORDERED: SUCRALFATE 1 GM/10 ML UDC PO STA (20:03)
--- NOTE | 2017-11-20 20:13 | XRAY Report ---
EXAM: CHEST RADIOGRAPHY EXAM DATE: 11/20/2017 07:27 PM. CLINICAL HISTORY: Chest pain. COMPARISON: Chest 11/18/2017. TECHNIQUE: 2 views. FINDINGS: Lungs/Pleura: Moderate left upper lobe airspace disease with consolidation appears unchanged from the prior. Left base lateral pulmonary nodule measures 9 mm, and this was present on the prior CT. Follo w-up chest CT at the end of December is recommended to further evaluate. Hyperexpanded emphysematous manuel gs. Mediastinum: Heart and mediastinal contours are unremarkable. IMPRESSION: Moderate left upper lobe airspace disease with consolidation appears unchanged from the p rior, suspect persistent pneumonia. Left base lateral pulmonary nodule measures 9 mm, and this was pr esent on the prior CT. Follow-up chest CT at the end of December is recommended to further evaluate. Hyp erexpanded emphysematous lungs. [facility] Referring Provider Line: [phone] SITE ID: [id number]
--- NOTE | 2017-11-20 21:47 | ED Physician Documentation ---
History of Present Illness - Stated complaint Stated Complaint: CHEST PX - Chief complaint Chief Complaint: Resp - History obtained from History obtained from: Patient, Family - History of Present Illness Timing: Today, How many hours ago (8) Pain level max: 5 Pain level now: 4 Quality: aching, pressure, tightness - Additonal information Additional information: Patient is a 72-year-old male who developed epigastric/lower chest pain after eating today. States it feels like a tightness and a pressure. Has had similar symptoms in the past. Seems to be worse with eating. Nothing makes the pain better. Has not taken anything for this. Had a recent diagnosis of pneumonia, but no longer has fevers or coughing. Does not have a history of acute coronary syndrome. 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) - Present Medications Home Medications: Ambulatory Orders Medication Instructions Recorded Confirmed Albuterol Sulfate [Proair 90 mcg IH Q4HR PRN #1 aer.pow.ba 10/29/17 11/20/17 Respiclick] Fluticasone/Salmeterol [Advair 1 each IH BID #1 blst.w.dev 10/29/17 11/20/17 250-50 Diskus] - Allergies Allergies/Adverse Reactions: Allergies Allergy/AdvReac Type Severity Reaction Status Date / Time tetanus and diphtheria Allergy Hives Verified 11/20/17 18:39 toxoids - Social History Does the pt smoke?: Yes Smoking Status: Current some day smoker Does the pt drink ETOH?: No Does the pt have substance abuse?: No - Immunizations Immunizations are current?: No - POLST Patient has POLST: No POLST Status: Full Code (The patient has been in recovery for 39 years) PD ED PE NORMAL - Vitals Vital signs reviewed: Yes - General General: Alert and oriented X 3, No acute distress - HEENT HEENT: PERRL, Ears normal, Moist mucous membranes, Pharynx benign - Neck Neck: Supple, no meningeal sign - Cardiac Cardiac: RRR, Strong equal pulses - Respiratory Respiratory: No respiratory distress, Clear bilaterally - Abdomen Abdomen: Soft, Non distended, Other (Mild tenderness palpation epigastric. Otherwise normal examination baseline. No peritoneal signs) - Derm Derm: Warm and dry - Extremities Extremities: No edema, No calf tenderness / cord - Neuro Neuro: Alert and oriented X 3 - Psych Psych: Normal mood, Normal affect Results - Vitals Vitals: Vital Signs - 24 hr 11/20/17 11/20/17 11/20/17 18:35 20:51 21:55 Temperature 36.6 C Heart Rate 80 83 78 Respiratory 16 18 14 Rate Blood Pressure 144/83 H 152/84 H 136/74 H O2 Saturation 97 97 99 Oxygen O2 Source Room air - EKG (time done) 1857 Rate: Rate (enter#) (71) Rhythm: NSR Cummings: Normal Intervals: Normal MS QRS: Normal Ischemia: Non specific changes - Labs Labs: Laboratory Tests 11/20/17 11/20/17 11/20/17 18:50 18:50 18:50 WBC 5.9 RBC 4.64 L Hgb 13.7 L Hct 41.9 L MCV 90.4 MCH 29.6 MCHC 32.7 RDW 13.8 Plt Count 228 MPV 7.4 Neut # 4.4 Lymph # 0.9 L [place] # 0.5 Eos # 0.1 Baso # 0.0 Absolute Nucleated RBC 0.00 Nucleated RBC % 0.0 Sodium 133 L Potassium 4.3 Chloride 98 L Carbon Dioxide 27 Anion Gap 8.0 BUN 14 Creatinine 0.8 Estimated GFR (MDRD) 95 Glucose 127 H Calcium 8.7 Total Bilirubin 0.6 AST 14 ALT 17 Alkaline Phosphatase 84 Troponin I < 0.04 Total Protein 6.5 L Albumin 3.6 Globulin 2.9 Albumin/Globulin Ratio 1.2 Lipase 65 H 11/20/17 21:05 WBC RBC Hgb Hct MCV MCH MCHC RDW Plt Count MPV Neut # Lymph # [place] # Eos # Baso # Absolute Nucleated RBC Nucleated RBC % Sodium Potassium Chloride Carbon Dioxide Anion Gap BUN Creatinine Estimated GFR (MDRD) Glucose Calcium Total Bilirubin AST ALT Alkaline Phosphatase Troponin I < 0.04 Total Protein Albumin Globulin Albumin/Globulin Ratio Lipase - Rads (name of study) cxr Radiology: Prelim report reviewed, EMP read contemporaneously, See rad report ( Moderate left upper lobe airspace disease with consolidation appears unchanged from the prior, suspect persistent pneumonia. Left base lateral pulmonary nodule measures 9 mm, and this was present on the prior CT. Follow-up chest CT at the end of December is recommended to further evaluate. Hyperexpanded emphysematous lungs. ) PD MEDICAL DECISION MAKING - ED course Complexity details: reviewed old records, reviewed results, re-evaluated patient , considered differential (No ST elevation WI, no aortic dissection, no PE, no tension pneumothorax, no aortic aneurysm), d/w patient, d/w family ED course: Patient is a 72-year-old male who presents to the emergency department with what sounds like epigastric abdominal pain rather than cardiac chest pain. Symptoms resolved with a GI cocktail. Negative troponin 2 after greater than 8 hours of pain. No acute findings on EKG. Does have apparent residual pneumonia on chest x-ray but is not coughing and has no fevers, will hold antibiotics at this time and have him follow-up with his doctor. Patient and family counseled regarding signs and symptoms for which I believe and urgent re- evaluation would be necessary. Patient with good understanding of and agreement to plan and is comfortable going home at this time This document was made in part using voice recognition software. While efforts are made to proofread this document, sound alike and grammatical errors may occur. Departure - Departure Disposition: 01 Home, Self Care Clinical Impression: Chest pain Qualifiers: Chest pain type: unspecified Qualified Code(s): R07.9 - Chest pain, unspecified Condition: Good Instructions: ED Chest Pain Atypical Unkn Cause Follow-Up: KEVAN MOORE [Primary Care Provider] - Within 3 Days Comments: The cause of your symptoms is unclear today, but doesn't appear related to your heart. Return if you worsen. You should have a cardiac stress test scheduled with your doctor in the next week. Discharge Date/Time: 11/20/17 21:56
[2017-11-20 21:56] VITALS: BP 136/74
== END 2017-11-20 21:56 | disposition home or self-care (01) ==
LOC: ED 18:33
DX: R07.9 Chest pain, unspecified (principal); F17.200 Nicotine dependence, unspecified, uncomplicated; R91.1 Solitary pulmonary nodule
CPT/HCPCS: 36415; 71046; 80053; 83690; 84484; 85025; 93005; 99284; A9270

== ENCOUNTER 2018-01-06 10:54 | Outpatient (CLI) | payer MEDICARE ==
--- NOTE | 2018-01-06 12:56 | XRAY Report ---
CHEST TWO VIEWS: 01/06/2018 HISTORY: Shortness of breath, lung mass. COMPARISON: Chest x-rays 10/26/2017, 11/18/2017 and 11/20/[address] 10/27/2017. FINDINGS: Changes of COPD are again appreciated. There is persistent left upper lobe airspace disease with volume loss with minimal if any improvement compared with 11/20/2017. The right lung remains clear. There is no pleural fluid or pneumothorax. Mild age-related changes in the spine. Normal heart size. IMPRESSION: PERSISTENT RESIDUAL LEFT UPPER LOBE AIRSPACE PROCESS. SUGGEST FURTHER EVALUATION BY REPEAT CHEST CT WITH CONTRAST. TD: 01/06/2018 12:55
== END 2018-01-06 10:55 | disposition home or self-care (01) ==
LOC: DI 10:54
PROVIDERS: ATTEND Family Medicine
DX: J44.9 Chronic obstructive pulmonary disease, unspecified (principal); J98.4 Other disorders of lung
CPT/HCPCS: 71046

== ENCOUNTER 2018-01-12 07:14 | Outpatient (CLI) | payer MEDICARE ==
[2018-01-12] MEDS ORDERED: IOPAMIDOL-300 100 ML VIAL ONE (07:59)
[2018-01-12 08:03] LABS: CREATININE 0.9 mg/dL (0.6-1.2)
--- NOTE | 2018-01-12 12:30 | CT Report ---
CT CHEST WITH CONTRAST: 01/12/2018 CLINICAL INDICATION: COPD, follow up persistent left upper lobe airspace disease. TECHNIQUE: Axial CT images of the chest were obtained with 80 mL Isovue 300 intravenously. COMPARISON: Plain film 01/06/2018, chest CT 10/27/2017. FINDINGS: The heart and great vessels demonstrate mild atherosclerotic calcification. No hilar or mediastinal lymphadenopathy is present. There has been interval improvement in left-sided infiltrates and left effusion. The 10 mm pleural based nodule in the lateral left lower lobe is stable. Extensive bronchiectasis and endobronchial plugging is unchanged from previous. Persistent atelectasis is seen in the posterior left upper lobe, accounting for the plain film abnormality. Limited evaluation of upper abdominal structures demonstrates normal adrenal glands. Osseous structures demonstrate degenerative changes. IMPRESSION: EXTENSIVE EMPHYSEMA, BRONCHIECTASIS, AND ATELECTASIS. STABLE 10 MM NODULE IN THE LATERAL LEFT LOWER LOBE. RESIDUAL LEFT UPPER LOBE ATELECTASIS, ACCOUNTING FOR THE PLAIN FILM ABNORMALITY. CT DOSE REDUCTION STATEMENT In accordance with CT protocol optimization, one or more of the following dose reduction techniques were utilized for this exam: automated exposure control, adjustment of mA and/or KV based on patient size, or use of iterative reconstructive technique. TD: 01/12/2018 12:28
[2018-01-12] MEDS ORDERED: IOPAMIDOL-300 100 ML VIAL IVP ONE (12:47)
== END 2018-01-12 07:15 | disposition home or self-care (01) ==
LOC: DI 07:14
PROVIDERS: ATTEND Family Medicine
DX: J43.9 Emphysema, unspecified (principal); J47.9 Bronchiectasis, uncomplicated; J98.11 Atelectasis; R91.1 Solitary pulmonary nodule
CPT/HCPCS: 36415; 71260; 82565; Q9967

== ENCOUNTER 2018-06-04 09:26 | Outpatient (CLI) | payer MEDICARE ==
--- NOTE | 2018-06-04 11:13 | XRAY Report ---
Reason: LUNG MASS Procedure Date: 06/04/2018 Accession Number: [id number] / [id number] Procedure: XR - Chest 2 View X-Ray CPT Code: 49752 FULL RESULT: EXAM: CHEST RADIOGRAPHY EXAM DATE: 06/04/2018 09:38 AM. CLINICAL HISTORY: Lung mass. COMPARISON: Chest 2 view 01/06/2018. Chest w/ 01/12/2018 8:20 AM. TECHNIQUE: 2 views. FINDINGS: Lungs/Pleura: There is a new stellate distortion in the right midlung field and persistent left upper lung distortion which correlates to the partial upper lobe collapse seen on the previous CT. No pleural effusion. No pneumothorax. Increased lung volumes with flattened diaphragms in keeping with obstructive disease. Mediastinum: Heart and mediastinal contours are stable. Other: None. IMPRESSION: Malignancy in the left upper lobe should be ruled out either by PET/CT or biopsy. Given the severely emphysematous lung, surveillance low-dose lung CT at three-month intervals to monitor for stability would be a reasonable alternative. The CT findings from January 2018 are at least LUNG-RADS 4A. Continued surveillance by chest radiograph is likely inadequate. RADIA
== END 2018-06-04 09:27 | disposition home or self-care (01) ==
LOC: DI 09:26
PROVIDERS: ATTEND Family Medicine
DX: R91.8 Other nonspecific abnormal finding of lung field (principal); J43.9 Emphysema, unspecified
CPT/HCPCS: 71046

== ENCOUNTER 2018-06-21 09:09 | Outpatient (CLI) | payer MEDICARE ==
--- NOTE | 2018-06-21 12:56 | CT Report ---
Reason: LUNG MASS Procedure Date: 06/21/2018 Accession Number: [id number] / [id number] Procedure: CT - Chest W/O CPT Code: FULL RESULT: EXAM: CT CHEST WITHOUT CONTRAST EXAM DATE: 06/21/2018 10:05 AM. CLINICAL HISTORY: Lung mass. COMPARISONS: Chest with contrast 01/12/2018 8:20 AM. TECHNIQUE: Routine helical CT imaging was performed through the chest. IV contrast: None. Reconstructions: Coronal and sagittal. In accordance with CT protocol optimization, one or more of the following dose reduction techniques were utilized for this exam: automated exposure control, adjustment of mA and/or KV based on patient size, or use of iterative reconstructive technique. FINDINGS: Lungs/Pleura: Interval development of a spiculated 1.3 cm perifissural right upper lobe nodule (image 35 series 4, image 53 series 7, image 37 series 6). There has been interval improvement in previously seen endobronchial plugging with persistent bronchiectasis. The background of severe emphysema is essentially unchanged. Chronic left upper lobe atelectasis has decreased in extent. Biapical scarring is stable. A well-marginated 1 cm left lower lobe subpleural nodule remains stable. There is no pulmonary edema. Pulmonary vasculature is normal. No pericardial or pleural effusion. No pneumothorax. Mediastinum: No adenopathy or masses. The heart and great vessels again demonstrate essentially unchanged mild atherosclerosis in the aorta and coronary vessels. Bones: No aggressive osseous lesions. Visualized Abdomen: Unremarkable. Other: None. IMPRESSION: Interval development of a suspicious right upper lobe nodule. Biopsy versus PET/CT is recommended. RADIA
== END 2018-06-21 09:10 | disposition home or self-care (01) ==
LOC: DI 09:09
PROVIDERS: ATTEND Family Medicine
DX: R91.1 Solitary pulmonary nodule (principal)
CPT/HCPCS: 71250

== ENCOUNTER 2021-04-12 08:22 | Emergency (ER) | payer MEDICARE ==
--- NOTE | 2021-04-12 09:03 | ED Physician Documentation ---
History of Present Illness - Stated complaint Stated Complaint: WEAKNESS - Chief complaint Chief Complaint: Neuro - History obtained from History obtained from: Patient, Family - History of Present Illness Timing: How many weeks ago (8+) - Additonal information Additional information: 75-year-old male with a history of COPD and emphysema has begun to lose weight over the past 4 months he has lost about 30 pounds he has a reduced appetite and is spending more time sleeping during the day than not. 4 months ago he was doing outside work in the garden mowing driving his tractor and now he is doing none of this. He is here today after his sister encouraged him to come to be evaluated. She has noticed the change in the patient has dramatic and notes that both her father and her brother of emphysema she has another brother he has another brother with emphysema who is waiting for a lung transplant. The patient does continue to smoke although he denies this his acknowledges that she has smelled this and he does have tobacco stains on his hands. 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 (Patient had a biopsy of his right testicle) - Present Medications Home Medications: Ambulatory Orders Medication Instructions Recorded Confirmed Albuterol Sulfate [Proair 90 mcg IH Q4HR PRN #1 aer.pow.ba 10/29/17 04/12/21 Respiclick] Fluticasone/Salmeterol [Advair 1 each IH BID #1 blst.w.dev 10/29/17 04/12/21 250-50 Diskus] - Allergies Allergies/Adverse Reactions: Allergies Allergy/AdvReac Type Severity Reaction Status Date / Time tetanus and diphtheria Allergy Hives Verified 04/12/21 08:34 toxoids - Social History Does the pt smoke?: Yes Smoking Status: Current every day smoker Does the pt drink ETOH?: No Does the pt have substance abuse?: No - Immunizations Immunizations are current?: No - POLST Patient has POLST: No POLST Status: Full Code (The patient has been in recovery for 39 years) PD ED PE NORMAL - Vitals Vital signs reviewed: Yes - General General: Alert and oriented X 3, No acute distress, Well developed/nourished - HEENT HEENT: Atraumatic, PERRL, EOMI, Ears normal - Neck Neck: Supple, no meningeal sign, No bony TTP - Cardiac Cardiac: No murmur, Other (tachy to 110) - Respiratory Respiratory: No respiratory distress, Other (diminished breath sounds) - Abdomen Abdomen: Soft, Non tender - Back Back: No CVA TTP, No spinal TTP - Derm Derm: Normal color, Warm and dry, No rash - Extremities Extremities: No deformity, No edema - Neuro Neuro: Alert and oriented X 3, 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, No motor deficit, No sensory deficit, Normal speech Eye Opening: Spontaneous Motor: Obeys Commands Verbal: Oriented GCS Score: 15 - Psych Psych: Normal mood, Normal affect Results - Vitals Vitals: Vital Signs - 24 hr 04/12/21 04/12/21 08:30 10:37 Temperature 36.6 C Heart Rate 108 H 93 Respiratory 17 17 Rate Blood Pressure 138/78 H 139/75 H O2 Saturation 97 96 Oxygen O2 Source Room air - Labs Labs: Laboratory Tests 04/12/21 04/12/21 09:12 09:12 WBC 9.4 RBC 4.21 L Hgb 11.4 L Hct 35.8 L MCV 85.0 MCH 27.1 MCHC 31.8 L RDW 14.7 Plt Count 228 MPV 9.5 Neut # (Auto) 8.2 H Lymph # (Auto) 0.5 L [place] # (Auto) 0.5 Eos # (Auto) 0.1 Baso # (Auto) 0.0 Absolute Nucleated RBC 0.00 Nucleated RBC % 0.0 Sodium 130 L Potassium 4.2 Chloride 93 L Carbon Dioxide 27 Anion Gap 10.0 BUN 45 H Creatinine 2.6 H Estimated GFR (MDRD) 24 L Glucose 112 H Calcium 8.2 L Total Bilirubin 0.9 AST 20 ALT 16 Alkaline Phosphatase 113 Total Protein 6.0 L Albumin 2.3 L Globulin 3.7 Albumin/Globulin Ratio 0.6 L Lipase 43 - Rads (name of study) chest Radiology: Prelim report reviewed (Impression: No acute cardiopulmonary process demonstrated radiographically.), EMP read indepedently, See rad report Procedures - IVC sono (time) 0850 Bedside IVC sono: IVC measures (cm) (1.62), Euvolemia PD MEDICAL DECISION MAKING - ED course Complexity details: reviewed results, re-evaluated patient, considered differential, d/w patient, d/w family ED course: 75-year-old male presents with 4 months of increasing generalized weakness weight loss and disinterest in food. Today we found the patient to be euvolemic on interrogation of the inferior vena cava and we found that he had some kidney injury that is new since our last check 3 years ago. When I first evaluated the patient I thought he likely had lung cancer and was here to be checked for that. The chest x-ray demonstrated no evidence of nodule or cancer. He had no evidence of infiltrate. The patient's blood counts are normal as well. The patient's potassium is normal his sodium is mildly low and we have administered saline. I have asked the patient to follow-up with his primary care doctor for reevaluation of his kidney function and further work-up as indicated for generalized weakness. He does not have a condition warranting admission to the hospital and he is not acutely ill.I did discuss the possibility of depression as his reason for not eating and drinking. The patient does have some issue with claudication symptoms. His GFR was not well enough to perform an angio runoff and this will be deferred until that can be done with improvement of the patient's renal function. Departure - Departure Disposition: 01 Home, Self Care Clinical Impression: Weakness Renal failure Qualifiers: Renal failure chronicity: acute on chronic Chronic kidney disease stage: stage 3 (moderate) Chronic kidney disease stage 3 subtype: stage 3b (GFR 30-44) Condition: Stable Instructions: ED Weakness UKO, ED Insufficiency Renal Follow-Up: Ramu Mccollum [Primary Care Provider] - Comments: Today in the emergency department we found that your kidneys appear to be failing. You are not in need of dialysis at this time but you will need to have your kidney function tested frequently. Follow-up with your primary care doctor. We found your liver functions were normal there was no evidence of a problem with the pancreas by your blood work and we found the chest to be clear of any signs of cancer. Talk your primary care doctor about depression is a cause of your decreased interest in food.
[2021-04-12 09:17] LABS: BASOPHILS % (AUTO) 0.1 %; EOSINOPHILS # (AUTO) 0.1 10^3/uL (0.0-0.7); EOSINOPHILS % (AUTO) 1.2 %; HCT - HEMATOCRIT 35.8 % (42.0-52.0); HGB - HEMOGLOBIN 11.4 g/dL (14.0-18.0); LYMPHOCYTES # (AUTO) 0.5 10^3/uL (1.5-3.5); LYMPHOCYTES % (AUTO) 4.8 %; MEAN CORPUSCULAR HEMOGLOBIN 27.1 pg (27.0-31.0); MEAN CORPUSCULAR HGB CONC 31.8 g/dL (32.0-36.0); MEAN PLATELET VOLUME 9.5 fL (7.4-11.4); MONOCYTES # (AUTO) 0.5 10^3/uL (0.0-1.0); MONOCYTES % (AUTO) 5.7 %; NEUTROPHILS # (AUTO) 8.2 10^3/uL (1.5-6.6); NEUTROPHILS % (AUTO) 87.7 %; PLT - PLATELET COUNT 228 10^3/uL (130-450); RED BLOOD COUNT 4.21 10^6/uL (4.70-6.10); RED CELL DISTRIBUTION WIDTH 14.7 % (12.0-15.0); WHITE BLOOD COUNT 9.4 x10^3/uL (4.8-10.8)
--- NOTE | 2021-04-12 09:27 | XRAY Report ---
PROCEDURE: Chest 1 View X-Ray INDICATIONS: chest pain TECHNIQUE: One view of the chest was acquired. COMPARISON: CT chest 06/21/2018 FINDINGS: Surgical changes and devices: None. Lungs and pleura: No pleural effusions or pneumothorax. Lungs are clear. Mediastinum: Mediastinal contours appear normal. Heart size is normal. Bones and chest wall: No suspicious bony lesions. Overlying soft tissues appear unremarkable. IMPRESSION: No acute cardiopulmonary process demonstrated radiographically. Reviewed by: Janes Canas MD on 04/12/2021 9:26 AM PDT Approved by: Janes Canas MD on 04/12/2021 9:26 AM PDT Station ID: [id number]
[2021-04-12 09:33] LABS: ALBUMIN 2.3 g/dL (3.2-5.5); ALBUMIN/GLOBULIN RATIO 0.6 (1.0-2.2); BILIRUBIN,TOTAL 0.9 mg/dL (0.2-1.0); CALCIUM 8.2 mg/dL (8.5-10.3); CREATININE 2.6 mg/dL (0.6-1.2); POTASSIUM 4.2 mmol/L (3.5-5.0)
[2021-04-12] MEDS ORDERED: SODIUM CHLORIDE 0.9% 1,000 ML IV STA (10:25)
[2021-04-12 11:30] VITALS: BP 142/76
== END 2021-04-12 11:25 | disposition home or self-care (01) ==
LOC: ED 08:22
DX: N18.32 Chronic kidney disease, stage 3b (principal); E87.1 Hypo-osmolality and hyponatremia; R53.1 Weakness; R63.4 Abnormal weight loss; J43.9 Emphysema, unspecified; F17.200 Nicotine dependence, unspecified, uncomplicated
CPT/HCPCS: 36415; 80053; 83690; 85025; 99281; 99284

== ENCOUNTER 2021-04-25 09:40 | Inpatient (IN) | payer MEDICARE ==
[2021-04-25] MEDS ORDERED: THIAMINE INJ 100 MG in SODIUM CHLORIDE 0.9% 50 ML IV STA (10:56)
[2021-04-25] MEDS ORDERED: SODIUM CHLORIDE 0.9% 1,000 ML IV STA ×2 (10:56→12:40)
--- NOTE | 2021-04-25 10:56 | ED Physician Documentation ---
History of Present Illness - Stated complaint Stated Complaint: NOT ABLE TO EAT - Chief complaint Chief Complaint: General - History obtained from History obtained from: Patient - Additonal information Additional information: 75-year-old gentleman who quit smoking 2 years ago after admission to the hospital for COPD has had trouble with swallowing over the last 6 weeks, feels like everything is kind of getting stuck around the level of the thyrohyoid. Has pain with forceful swallowing. This is led to poor p.o. intake and approximately a 40 pound weight loss over that timeframe. Starting today he developed some weakness. He was also incontinent of stool. 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 (Patient had a biopsy of his right testicle) - Present Medications Home Medications: Ambulatory Orders Medication Instructions Recorded Confirmed Albuterol Sulfate [Proair 90 mcg IH Q4HR PRN #1 aer.pow.ba 10/29/17 04/25/21 Respiclick] Fluticasone/Salmeterol [Advair 1 each IH BID #1 blst.w.dev 10/29/17 04/25/21 250-50 Diskus] - Allergies Allergies/Adverse Reactions: Allergies Allergy/AdvReac Type Severity Reaction Status Date / Time tetanus and diphtheria Allergy Hives Verified 04/25/21 10:11 toxoids - Social History Does the pt smoke?: Yes Smoking Status: Current some day smoker Does the pt drink ETOH?: No Does the pt have substance abuse?: No - Immunizations Immunizations are current?: No - POLST Patient has POLST: No POLST Status: Full Code (The patient has been in recovery for 39 years) PD ED PE NORMAL - Vitals Vital signs reviewed: Yes - General General: Alert and oriented X 3, No acute distress, Other (He is cachectic) - HEENT HEENT: PERRL, EOMI, Other - Neck Neck: Supple, no meningeal sign (Visualized portions of the oropharynx are normal but his voice is definitely gravelly and squeaky.) - Cardiac Cardiac: RRR, No murmur - Respiratory Respiratory: No respiratory distress, Other (Diminished left upper) - Abdomen Abdomen: Non tender - Back Back: No CVA TTP, No spinal TTP - Derm Derm: Normal color, Warm and dry - Extremities Extremities: No edema, No calf tenderness / cord - Neuro Neuro: Alert and oriented X 3, Normal speech Results - Vitals Vitals: Vital Signs - 24 hr 04/25/21 04/25/21 04/25/21 10:07 11:09 13:07 Temperature 36.2 C L Heart Rate 114 H 94 91 Respiratory 16 16 Rate Blood Pressure 151/88 H 143/84 H O2 Saturation 100 100 99 04/25/21 15:42 Temperature Heart Rate 92 Respiratory 20 Rate Blood Pressure 153/79 H O2 Saturation 97 Oxygen O2 Source Room air - Labs Labs: Laboratory Tests 04/25/21 04/25/21 04/25/21 11:07 11:07 15:27 WBC 9.6 RBC 4.11 L Hgb 11.1 L Hct 35.6 L MCV 86.6 MCH 27.0 MCHC 31.2 L RDW 16.3 H Plt Count 185 MPV 10.4 Neut # (Auto) 8.9 H Lymph # (Auto) 0.3 L Barnwell # (Auto) 0.3 Eos # (Auto) 0.1 Baso # (Auto) 0.0 Absolute Nucleated RBC 0.00 Nucleated RBC % 0.0 Sodium 134 L 138 Potassium 5.4 H 4.7 Chloride 96 L 100 L Carbon Dioxide 20 L 22 Anion Gap 18.0 H 16.0 H BUN 117 H* 112 H* Creatinine 8.7 H* 8.2 H* Estimated GFR (MDRD) 6 L 6 L Glucose 116 H 103 H Calcium 8.0 L 7.7 L Magnesium 2.7 Total Bilirubin 1.1 H AST 18 ALT 14 Alkaline Phosphatase 147 H Total Protein 6.3 L Albumin 2.5 L Globulin 3.8 Albumin/Globulin Ratio 0.7 L Nasal Adenovirus (PCR) Nasal B. parapertussis DNA (PCR) Nasal Coronavir 229E PCR Nasal Coronavir HKU1 PCR Nasal Coronavir NL63 PCR Nasal Coronavir OC43 PCR Nasal Enterovir/Rhinovir PCR Nasal Influenza B PCR Nasal Influenza A PCR Nasal Parainfluen 1 PCR Nasal Parainfluen 2 PCR Nasal Parainfluen 3 PCR Nasal Parainfluen 4 PCR Nasal RSV (PCR) Nasal B.pertussis DNA PCR Nasal C.pneumoniae (PCR) Corey Human Metapneumo PCR Nasal M.pneumoniae (PCR) Nasal SARS-CoV-2 (PCR) 04/25/21 16:00 WBC RBC Hgb Hct MCV MCH MCHC RDW Plt Count MPV Neut # (Auto) Lymph # (Auto) Barnwell # (Auto) Eos # (Auto) Baso # (Auto) Absolute Nucleated RBC Nucleated RBC % Sodium Potassium Chloride Carbon Dioxide Anion Gap BUN Creatinine Estimated GFR (MDRD) Glucose Calcium Magnesium Total Bilirubin AST ALT Alkaline Phosphatase Total Protein Albumin Globulin Albumin/Globulin Ratio Nasal Adenovirus (PCR) NOT DETECTED Nasal B. parapertussis DNA (PCR) NOT DETECTED Nasal Coronavir 229E PCR NOT DETECTED Nasal Coronavir HKU1 PCR NOT DETECTED Nasal Coronavir NL63 PCR NOT DETECTED Nasal Coronavir OC43 PCR NOT DETECTED Nasal Enterovir/Rhinovir PCR NOT DETECTED Nasal Influenza B PCR NOT DETECTED Nasal Influenza A PCR NOT DETECTED Nasal Parainfluen 1 PCR NOT DETECTED Nasal Parainfluen 2 PCR NOT DETECTED Nasal Parainfluen 3 PCR NOT DETECTED Nasal Parainfluen 4 PCR NOT DETECTED Nasal RSV (PCR) NOT DETECTED Nasal B.pertussis DNA PCR NOT DETECTED Nasal C.pneumoniae (PCR) NOT DETECTED Corey Human Metapneumo PCR NOT DETECTED Nasal M.pneumoniae (PCR) NOT DETECTED Nasal SARS-CoV-2 (PCR) NOT DETECTED PD MEDICAL DECISION MAKING - ED course ED course: 75-year-old gentleman has not been able to eat or drink due to dysphagia and odynophagia for 6 weeks with corresponding 40 pound weight loss. He is found to be in significant and severe renal failure likely due from to profound hypovolemia. CT scanning of the neck and chest consistent with esophageal thickening and other chronic findings. Direct visualization was recommended. Spoke with the hospitalist initially for admission at 3 PM, she requests a repeat BMP to make sure he is responding to fluids. Spoke with Dr. Monreal, the on-call surgeon, he will see in consultation, we spoke at approximately 3:20 PM. Departure - Departure Disposition: 66 [facility] DC/Xfer Clinical Impression: COPD exacerbation, Dehydration, Weakness, Esophageal thickening, Weight loss Renal failure Qualifiers: Renal failure chronicity: acute Acute renal failure type: unspecified Qualified Code(s): N17.9 - Acute kidney failure, unspecified Dysphagia Qualifiers: Dysphagia type: unspecified Qualified Code(s): R13.10 - Dysphagia, unspecified Condition: Serious
[2021-04-25] MEDS ORDERED: IOVERSOL 320 100 ML VIAL IVP ONE (11:01)
[2021-04-25 11:18] LABS: BASOPHILS % (AUTO) 0.1 %; EOSINOPHILS # (AUTO) 0.1 10^3/uL (0.0-0.7); EOSINOPHILS % (AUTO) 0.8 %; HCT - HEMATOCRIT 35.6 % (42.0-52.0); HGB - HEMOGLOBIN 11.1 g/dL (14.0-18.0); LYMPHOCYTES # (AUTO) 0.3 10^3/uL (1.5-3.5); LYMPHOCYTES % (AUTO) 3.5 %; MEAN CORPUSCULAR HGB CONC 31.2 g/dL (32.0-36.0); MEAN CORPUSCULAR VOLUME 86.6 fL (80.0-94.0); MEAN PLATELET VOLUME 10.4 fL (7.4-11.4); MONOCYTES # (AUTO) 0.3 10^3/uL (0.0-1.0); NEUTROPHILS # (AUTO) 8.9 10^3/uL (1.5-6.6); NEUTROPHILS % (AUTO) 92.1 %; PLT - PLATELET COUNT 185 10^3/uL (130-450); RED BLOOD COUNT 4.11 10^6/uL (4.70-6.10); RED CELL DISTRIBUTION WIDTH 16.3 % (12.0-15.0); WHITE BLOOD COUNT 9.6 x10^3/uL (4.8-10.8)
[2021-04-25 11:47] LABS: ALBUMIN 2.5 g/dL (3.2-5.5); ALBUMIN/GLOBULIN RATIO 0.7 (1.0-2.2); BILIRUBIN,TOTAL 1.1 mg/dL (0.2-1.0); MAGNESIUM 2.7 mg/dL (1.7-2.8); POTASSIUM 5.4 mmol/L (3.5-5.0); TOTAL PROTEIN 6.3 g/dL (6.7-8.2)
[2021-04-25 11:52] LABS: CREATININE 8.7 mg/dL (0.6-1.2)
--- NOTE | 2021-04-25 14:23 | CT Report ---
PROCEDURE: CHEST WO INDICATIONS: dysphagia weight loss TECHNIQUE: Noncontrast images were acquired from the pulmonary apices to the posterior costophrenic angles. Mul tiplanar MIP reformats were then acquired. For radiation dose reduction, the following was used: au tomated exposure control, adjustment of mA and/or kV according to patient size. COMPARISON: Chest CT without contrast dated 06/21/2018 FINDINGS: Image quality: Excellent. Lungs and pleura: Severe centrilobular emphysema. The process which was suspected to be a possible 1 .3 cm preri-fissural left upper lobe nodule on the previous study no longer has this suspicious appea elder. The appearance is consistent with focal chronic volume loss and scarring. A previously noted 0 .9 cm nodule adjacent to the pleura in the left lower lobe is unchanged. No new or increasing pulmona ry nodules. No acute air space opacities. No pleural effusions or pneumothorax. Bibasilar bronchiect asis. Minimal left basilar atelectasis. Mediastinum: Heart size is normal. No pericardial effusion. No mediastinal adenopathy by size crit eria. Thoracic aorta and central pulmonary arteries are normal in size. Esophagus is normal in [place]. No hiatal hernia. Bones and chest wall: No suspicious bony lesions. No vertebral body compression fractures. No axil nikole or supraclavicular adenopathy by size criteria. Thyroid is grossly unremarkable. Abdomen: Visualized upper abdominal solid organs and bowel loops appear normal in the absence of con trast. IMPRESSION: 1. Severe centrilobular emphysema. 2. Stable 9 mm subpleural left lower lobe pulmonary nodule. 3. The abnormality in the left upper lobe on the previous study is no longer have a nodular appearanc e. Findings are consistent with chronic volume loss and scarring. 4. Bibasilar bronchiectasis and minimal left basilar atelectasis. CLINICAL RECOMMENDATION STATEMENTS: In patients <35 years with an ITN detected on CT, MRI, or extrathyroidal ultrasound, the Committee re commends further evaluation with dedicated thyroid ultrasound if the nodule is ?1 cm and has no suspi cious imaging features, and if the patient has normal life expectancy. In patients ?35 years with an ITN detected on CT, MRI, or extrathyroidal ultrasound, the Committee re commends further evaluation with dedicated thyroid ultrasound if the nodule is ?1.5 cm and has no yash picious imaging features, and if the patient has normal life expectancy. (ACR, 2014) Reviewed by: Rajesh Lara MD on 04/25/2021 2:22 PM PDT Approved by: Rajesh Lara MD on 04/25/2021 2:22 PM PDT Station ID: [id number]
--- NOTE | 2021-04-25 14:31 | CT Report ---
PROCEDURE: SOFT TISSUE NECK WO INDICATIONS: dysphagia, weight loss, renal failure TECHNIQUE: Non-contrast 3.0 mm axial sections acquired from the sella to the aortic arch. Additiona l oblique axial 3.0 mm sections acquired through the pharynx. 3 mm thick coronal reformats were gene rated. For radiation dose reduction, the following was used: automated exposure control, adjustment of mA and/or kV according to patient size. COMPARISON: CT chest from the same day FINDINGS: Image quality: Excellent. Lymph nodes: No enlarged lymph nodes seen throughout the neck. Vessels: Non-opacified vessels appear normal in caliber. Neck spaces: The oropharynx, nasopharynx, and pharynx demonstrate no mucosal lesions. The vocal cor ds, false vocal cords, pyriform sinuses, epiglottis, vallecula, and tongue base all appear normal. E xtramucosal spaces appear unremarkable. Glands: The parotid and submandibular glands appear normal, without stones. The thyroid is normal i n size and there are no incidental findings. Miscellaneous: Visualized brain and orbits appear normal. Lung apices appear clear. Severe centril obular emphysema. Superficial soft tissues appear normal. There is suggestion of wall thickening of the upper thoracic esophagus. IMPRESSION: 1. Suggestion of wall thickening of the upper thoracic esophagus. 2. Severe centrilobular emphysema. 3. No cervical adenopathy identified. 4. Study is somewhat limited by the lack of intravenous contrast. Comment: Recommend direct visualization of the esophagus endoscopically to exclude a subcutaneous mal ignancy. Above discussed with WADE MCKEON at the time of dictation. CLINICAL RECOMMENDATION STATEMENTS: In patients <35 years with an ITN detected on CT, MRI, or extrathyroidal ultrasound, the Committee re commends further evaluation with dedicated thyroid ultrasound if the nodule is ?1 cm and has no suspi cious imaging features, and if the patient has normal life expectancy. In patients ?35 years with an ITN detected on CT, MRI, or extrathyroidal ultrasound, the Committee re commends further evaluation with dedicated thyroid ultrasound if the nodule is ?1.5 cm and has no yash picious imaging features, and if the patient has normal life expectancy. (ACR, 2014) Reviewed by: Rajesh Lara MD on 04/25/2021 2:30 PM PDT Approved by: Rajesh Lara MD on 04/25/2021 2:30 PM PDT Station ID: [id number]
[2021-04-25 16:08] LABS: CALCIUM 7.7 mg/dL (8.5-10.3); POTASSIUM 4.7 mmol/L (3.5-5.0)
[2021-04-25 16:11] LABS: CREATININE 8.2 mg/dL (0.6-1.2)
[2021-04-25] MEDS ORDERED: SODIUM CHLORIDE FLUSH 0.9% 10 ML SYRINGE IVP PRN (16:37)
[2021-04-25] MEDS ORDERED: ACETAMINOPHEN 325 MG TABLET PO PRN (16:37)
[2021-04-25] MEDS ORDERED: ONDANSETRON 4 MG/2 ML VIAL IVP PRN (16:37)
[2021-04-25] MEDS ORDERED: ALBUTEROL NEB 2.5 MG/3 ML INH PRN (16:43)
[2021-04-25] MEDS ORDERED: SODIUM CHLORIDE 0.9% 1,000 ML IV SCH (17:00)
--- NOTE | 2021-04-25 17:17 | XRAY Report ---
PROCEDURE: Chest 1 View X-Ray INDICATIONS: sob TECHNIQUE: 2 AP views of the chest acquired. COMPARISON: Chest CT performed the same day. FINDINGS: Surgical changes and devices: None. Lungs and pleura: The lungs are hyperexpanded, which can be seen in setting of COPD. No acute airspac e opacity. No pleural effusion or pneumothorax. Mediastinum: Mediastinal contours appear normal. Heart size is normal. Bones and chest wall: No suspicious bony lesions. Overlying soft tissues appear unremarkable. Dege nerative changes are seen in the spine. IMPRESSION: Hyperexpanded lungs can be seen in the setting of COPD. Please see the report from the CT of the [facility] t performed earlier the same day for more detailed review of intrathoracic findings. Reviewed by: Arnol Negro MD on 04/25/2021 4:15 PM AKDT Approved by: Arnol Negro MD on 04/25/2021 4:15 PM AKDT Station ID: [id number]
--- NOTE | 2021-04-25 17:30 | HISTORY & PHYSICAL EXAMINATION ---
Chief Complaint - Chief Complaint Chief Complaint: can not eat and swallowing History of Present Illness - Admitted From Admitted From:: ER - History Obtained From Records Reviewed: [facility] History obtained from: pt Exam Limitations: no - History of Present Illness HPI Comment/Other: This is a 75-year-old gentleman with medical significant history of COPD who present ER complain of difficult to swallowing food and loss of appetite. pt report he has had trouble of swallowing over the last two months, loss of appetite. Pt reports he was unable to clear throat. He report he feels like everything he swallowd was stuck around his neck. he feel pain when he force swallowing. He report he had much reduced intake of water and food. he report he had weight loss of about 40 pounds in about two months. he report he quit s moking [address] of the neck And the chest reveals the wall thickening of the upper thoracic esophagus, Severe centrilobular emphysema, No cervical adenopathy identified, Stable 9 mm left lower lobe pulmonary nodule, Bibasilar bronchiectasis. Routine laboratory tests that show patient had creatinine 8.2, BUN 112 after pt had one liter of IVF in ER. 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 His mother at the age 91 from lung cancer. both were heavy smoke Social History Notes: Patient reported he quit cigarette smoking 2 years ago. He denies alcohol or drug issue. - Substance History Use: Uses substance without health or social issues: NONE - POLST Patient has POLST: No POLST Status: DNR Meds/Allgy - Home Medications Home Medications: Ambulatory Orders Medication Instructions Recorded Confirmed Albuterol Sulfate [Proair 90 mcg IH Q4HR PRN #1 aer.pow.ba 01/25/18 07/22/21 Respiclick] Fluticasone/Salmeterol [Advair 1 each IH BID #1 blst.w.dev 10/29/17 04/25/21 250-50 Diskus] - Allergies Allergies/Adverse Reactions: Allergies Allergy/AdvReac Type Severity Reaction Status Date / Time tetanus and diphtheria Allergy Hives Verified 04/25/21 10:11 toxoids Review of Systems - Constitutional Constitutional: denies: Fever, Chills - Eyes Eyes: denies: Pain, Field loss, Vision loss - Ears, Nose & Throat Ears, Nose & Throat: denies: Ear pain, Nosebleeds, Bleeding gums - Cardiovascular Cariovascular: denies: Irregular heart rate, Chest pain, Exertional dyspnea, Decr. exercise tolerance - Respiratory Respiratory: reports: Cough, Sputum production. denies: SOB at rest, SOB with exertion - Gastrointestinal Gastrointestinal: reports: Poor appetite, Other (pain at swallowing). denies: Abdominal pain, Diarrhea, Nausea, Vomiting - Genitourinary Genitourinary: denies: Dysuria, Incontinence - Musculoskeletal Musculoskeletal: denies: Muscle pain - Integumentary Integumentary: denies: Rash - Neurological Neurological: reports: General weakness. denies: Focal weakness, Headache, Dizziness, Numbness, Seizures, Incoordination, Slurred speech - Psychiatric Psychiatric: denies: Depression - Endocrine Endocrine: denies: Polyuria - Hematologic/Lymphatic Hematologic/Lymphatic: denies: Anemia Exam - Vital Signs Vital Signs: Vital Signs x48h Temp Pulse Resp BP Pulse Ox 04/25/21 17:15 92 16 147/84 H 98 04/25/21 15:42 92 20 153/79 H 97 04/25/21 13:07 91 16 143/84 H 99 04/25/21 11:09 94 100 04/25/21 10:07 36.2 C L 114 H 16 151/88 H 100 - Physical Exam General Appearance: positive: No acute distress, Alert. negative: Lethargic Eyes Bilateral: positive: Normal inspection, PERRL, No lid inflammation ENT: positive: ENT inspection nml, Dry mucous membranes. negative: Purulent nasal drainage, Pharyngeal erythema, Oral lesions Neck: positive: Nml inspection, Thyroid nml, Trachea midline. negative: Thyromegaly, Lymphadenopathy (R), Lymphadenopathy (L), Stiff neck, Tracheal deviation Respiratory: positive: Chest non-tender, No respiratory distress, Other (Diminished lung sounds bilaterally). negative: Wheezes Cardiovascular: positive: Regular rate & rhythm, No murmur. negative: Tachycardia, Bradycardia, Systolic murmur, Diastolic murmur Peripheral Pulses: positive: 2+ Abdomen: positive: Non-tender, Nml bowel sounds, No distention. negative: Tenderness Back: positive: Nml inspection Skin: positive: Color nml, Warm, Dry. negative: Cyanosis Extremities: positive: Non-tender, Nml appearance. negative: Calf tenderness Neurologic/Psychiatric: positive: Oriented x3, Sensation nml, Mood/affect nml. negative: Weakness, Sensory loss, Facial droop, Slurred/abnml speech, Depressed mood/affect Conclusion/Plan - Problem List (1) Dysphagia Conclusion/Plan: Patient reported he had difficult swallow for almost 2 months. He had signific antly reduced intake of fluids and food. CT of neck reveal the wall thickening of the upper thoracic esophagus. Patient lost about 40 pounds in this 2 months. ER already called general surgeon, we plan to have EGD for patient tomorrow. Protonix intravenous. NPO now. (2) Acute kidney failure Conclusion/Plan: Patient had a creatinine 8.2, BUN 112. Creatinine was 2.6 reported 2 weeks ago. Patient reported he had significantly reduced intake of fluids in the home, Patient given 1 L of normal saline, patient creatinine down from 8.7 to 8.2. Patient report he is willing to have dialysis if needed.We will daily medical laboratory technicians, intravenous IV fluids, Precaution fluid overloaded. (3) COPD (chronic obstructive pulmonary disease) Conclusion/Plan: Patient smoking for many years, quit smoking 2 years ago, patient had severe COPD. We will resume patient home breathing treatment, continue DuoNeb, albuterol, Pulmicort. Since patient has not on COPD exacerbation (4) Failure to thrive Conclusion/Plan: Patient lost 40 pounds in 2 months, he has no appetite, he feel pain when he swallows. We will have nutrition consult for patient, will have GI consult for patient plan to have EGD for patient - Lab Results Fish Bones: 04/25/21 11:07 04/25/21 15:27 Core Measures - Anticipated LOS I expect patient to be DC'd or transferred within 96 hours.: Yes - DVT/VTE - Prophylaxis VTE/DVT Device ordered at admit?: Yes VTE/DVT Prophylaxis med ordered at admit?: Yes
[2021-04-25 17:31] LABS: B. PARAPERTUSSIS- RESP PCR PAN NOT DETECTED; B. PERTUSSIS- RESP PCR PANEL NOT DETECTED; C. PNEUMONIAE- RESP PCR PANEL NOT DETECTED; CORONAVIRUS 229E-RESP PCR NOT DETECTED; CORONAVIRUS HKU1-RESP PCR NOT DETECTED; CORONAVIRUS NL63-RESP PCR NOT DETECTED; CORONAVIRUS OC43-RESP PCR NOT DETECTED; HUMAN METAPNEUMOVIRUS NOT DETECTED; INFLUENZA A- RESP PCR PANEL NOT DETECTED; INFLUENZA B - RESP PCR PANEL NOT DETECTED; M. PNEUMONIAE- RESP PCR PANEL NOT DETECTED; PARAINFLUENZA VIRUS 1 NOT DETECTED; PARAINFLUENZA VIRUS 2 NOT DETECTED; PARAINFLUENZA VIRUS 3 NOT DETECTED; PARAINFLUENZA VIRUS 4 NOT DETECTED; RHINOVIRUS/ENTEROVIRUS NOT DETECTED; RSV- RESP PCR PANEL NOT DETECTED; SARS-CoV-2 -RESP PCR PANEL NOT DETECTED
[2021-04-25] MEDS: IPRATROPIUM/ALBUTEROL 3 ML NEB INH PRN (18:19)
[2021-04-25] MEDS: PANTOPRAZOLE 40 MG VIAL IVP SCH (18:47)
[2021-04-25] MEDS: SODIUM CHLORIDE 0.9% 1,000 ML IV SCH (18:48)
[2021-04-25] MEDS: SODIUM CHLORIDE FLUSH 0.9% 10 ML SYRINGE IVP SCH (18:48)
[2021-04-25] MEDS: FORMOTEROL FUMARATE NEB 20 MCG/2 ML INH SCH (19:45)
[2021-04-25] MEDS: BUDESONIDE 0.5 MG/2 ML NEB INH SCH (19:45)
[2021-04-25] MEDS: HEPARIN 5,000 UNIT/ML VIAL SUBQ SCH (21:50)
[2021-04-26] MEDS: SODIUM CHLORIDE FLUSH 0.9% 10 ML SYRINGE IVP SCH ×3 (00:18→15:42)
[2021-04-26] MEDS: SODIUM CHLORIDE 0.9% 1,000 ML IV SCH ×6 (00:18→23:57)
[2021-04-26] MEDS: PANTOPRAZOLE 40 MG VIAL IVP SCH (06:00)
[2021-04-26 06:33] LABS: BASOPHILS % (AUTO) 0.2 %; EOSINOPHILS # (AUTO) 0.1 10^3/uL (0.0-0.7); EOSINOPHILS % (AUTO) 0.8 %; HCT - HEMATOCRIT 28.3 % (42.0-52.0); HGB - HEMOGLOBIN 8.6 g/dL (14.0-18.0); LYMPHOCYTES # (AUTO) 0.3 10^3/uL (1.5-3.5); MEAN CORPUSCULAR HEMOGLOBIN 26.8 pg (27.0-31.0); MEAN CORPUSCULAR HGB CONC 30.4 g/dL (32.0-36.0); MEAN CORPUSCULAR VOLUME 88.2 fL (80.0-94.0); MEAN PLATELET VOLUME 10.3 fL (7.4-11.4); MONOCYTES # (AUTO) 0.2 10^3/uL (0.0-1.0); MONOCYTES % (AUTO) 3.4 %; NEUTROPHILS # (AUTO) 5.5 10^3/uL (1.5-6.6); PLT - PLATELET COUNT 142 10^3/uL (130-450); RED BLOOD COUNT 3.21 10^6/uL (4.70-6.10); RED CELL DISTRIBUTION WIDTH 16.8 % (12.0-15.0); WHITE BLOOD COUNT 6.2 x10^3/uL (4.8-10.8)
[2021-04-26 07:04] LABS: CALCIUM 7.7 mg/dL (8.5-10.3)
[2021-04-26 07:17] LABS: CREATININE 8.2 mg/dL (0.6-1.2)
[2021-04-26] MEDS: FORMOTEROL FUMARATE NEB 20 MCG/2 ML INH SCH ×2 (07:20→19:44)
[2021-04-26] MEDS: IPRATROPIUM/ALBUTEROL 3 ML NEB INH PRN ×3 (07:20→19:44)
[2021-04-26] MEDS: BUDESONIDE 0.5 MG/2 ML NEB INH SCH ×2 (07:20→19:44)
--- NOTE | 2021-04-26 07:57 | ANESTHESIA ---
Pre-Anesthesia VS, & Labs - Diagnosis dysphagia - Procedure EGD Vital Signs: Temp Pulse Resp BP Pulse Ox 36.6 C 95 16 133/64 H 97 04/26/21 07:33 04/26/21 07:33 04/26/21 07:33 04/26/21 07:33 04/26/21 07:33 Height: 6 ft 1 in Weight (kg): 48.5 kg Body Mass Index: 14.1 BMI Classification: Underweight - NPO >8 hours - Lab Results Current Lab Results: Laboratory Tests 04/26/21 06:03: Sodium 142, Potassium 5.0, Chloride 109, Carbon Dioxide 18 L, Anion Gap 15.0 H, BUN 113 H*, Creatinine 8.2 H*, Estimated GFR (MDRD) 6 L, Glucose 80, Calcium 7.7 L 04/26/21 06:03: WBC 6.2, RBC 3.21 L, Hgb 8.6 L, Hct 28.3 L, MCV 88.2, MCH 26.8 L , MCHC 30.4 L, RDW 16.8 H, Plt Count 142, MPV 10.3, Neut # (Auto) 5.5, Lymph # (Auto) 0.3 L, Stewart # (Auto) 0.2, Eos # (Auto) 0.1, Baso # (Auto) 0.0, Absolute Nucleated RBC 0.00, Nucleated RBC % 0.0 04/25/21 15:27: Sodium 138, Potassium 4.7, Chloride 100 L, Carbon Dioxide 22, Anion Gap 16.0 H, BUN 112 H*, Creatinine 8.2 H*, Estimated GFR (MDRD) 6 L, Glucose 103 H, Calcium 7.7 L 04/25/21 11:07: Sodium 134 L, Potassium 5.4 H, Chloride 96 L, Carbon Dioxide 20 L, Anion Gap 18.0 H, BUN 117 H*, Creatinine 8.7 H*, Estimated GFR (MDRD) 6 L, Glucose 116 H, Calcium 8.0 L, Magnesium 2.7, Total Bilirubin 1.1 H, AST 18, ALT 14, Alkaline Phosphatase 147 H, Total Protein 6.3 L, Albumin 2.5 L, Globulin 3.8, Albumin/Globulin Ratio 0.7 L 04/25/21 11:07: WBC 9.6, RBC 4.11 L, Hgb 11.1 L, Hct 35.6 L, MCV 86.6, MCH 27.0, MCHC 31.2 L, RDW 16.3 H, Plt Count 185, MPV 10.4, Neut # (Auto) 8.9 H, Lymph # (Auto) 0.3 L, Stewart # (Auto) 0.3, Eos # (Auto) 0.1, Baso # (Auto) 0.0, Absolute Nucleated RBC 0.00, Nucleated RBC % 0.0 Lab results reviewed: Yes Fish Bones: 04/26/21 06:03 04/26/21 06:03 Home Medications and Allergies Active Medications Acetaminophen (Acetaminophen 325 Mg Tablet) 650 mg PO Q4HR PRN PRN Reason: Pain 1 to 4 Albuterol (Albuterol Neb 2.5 Mg/3 Ml) 2.5 mg INH RTQ4H PRN PRN Reason: Wheezing Last Admin: 04/25/21 19:45 Dose: 2.5 mg Documented by: Albuterol/Ipratropium (Ipratropium/Albuterol 3 Ml Neb) 3 ml INH Q4HR PRN PRN Reason: Wheezing Last Admin: 04/26/21 07:20 Dose: 3 ml Documented by: Budesonide (Budesonide 0.5 Mg/2 Ml Neb) 0.5 mg INH RTBID CHARLES Last Admin: 04/26/21 07:20 Dose: 0.5 mg Documented by: Formoterol Fumarate (Formoterol Fumarate Neb 20 Mcg/2 Ml) 20 mcg INH RTBID CHARLES Last Admin: 04/26/21 07:20 Dose: 20 mcg Documented by: Heparin Sodium (Porcine) (Heparin 5,000 Unit/Ml Vial) 5,000 unit SUBQ BID CHARLES Last Admin: 04/25/21 21:50 Dose: 5,000 unit Documented by: Dextrose/Sodium Chloride (D5.45ns) 1,000 mls @ 150 mls/hr IV .Q6H40M [facility] Ondansetron HCl (Ondansetron 4 Mg/2 Ml Vial) 4 mg IVP Q6HR PRN PRN Reason: Nausea / Vomiting Pantoprazole Sodium (Pantoprazole 40 Mg Vial) 40 mg IVP QDAC [facility] Last Admin: 04/26/21 06:00 Dose: 40 mg Documented by: Sodium Chloride (Sodium Chloride Flush 0.9% 10 Ml Syringe) 10 ml IVP PRN PRN PRN Reason: NEEDED PER PROVIDER ORDERS Sodium Chloride (Sodium Chloride Flush 0.9% 10 Ml Syringe) 10 ml IVP 0100,0900,1700 CHARLES Last Admin: 04/26/21 00:18 Dose: 10 ml Documented by: Allergies/Adverse Reactions: Allergies Allergy/AdvReac Type Severity Reaction Status Date / Time tetanus and diphtheria Allergy Hives Verified 04/25/21 10:11 toxoids Anes History & Medical History - Anesthetic History Anesthesia Complications: reports: No previous complications Family history of Anesthesia Complications: Denies Family history of Malignant Hyperthermia: Denies - Medical History Cardiovascular: reports: None Pulmonary: reports: COPD (denies SOB), Pneumonia, Other Gastrointestinal: reports: None, Other (difficulty swallowing, 40 lbs weight loss over last 2 months) Urinary: reports: None Musculoskeletal: reports: None Endocrine/Autoimmune: reports: None Blood Disorders: reports: None Skin: reports: None Smoking Status: Current some day smoker Other Past Medical History: acute kidney injury(cr 8.2) - Surgical History Gynecologic: reports: Other (Patient had a biopsy of his right testicle) Exam General: Alert, Oriented x3, Cooperative, No acute distress Dental: Poor dentition Mouth Openin Fingerbreadth Neck Mobility: Normal Mallampati classification: I Respiratory: Lungs clear, Normal breath sounds, No respiratory distress, No accessory muscle use Cardiovascular: Regular rate, Normal S1, Normal S2, No murmurs Plan Anesthesia Type: General, Total IV Consent for Procedure(s) Verified and Reviewed: Yes Code Status: Attempt Resuscitation ASA classification: 4-Incapacitating disease Is this case an emergency?: No
[2021-04-26] MEDS ORDERED: DEXTROSE 5%-0.45% NACL 1,000 ML IV SCH (08:00)
--- NOTE | 2021-04-26 09:36 | Ultrasound Report ---
PROCEDURE: Retroperitoneal INDICATIONS: ELMO TECHNIQUE: Real-time scanning was performed of the retroperitoneal organs, with image documentation. COMPARISON: None. FINDINGS: Kidneys: Kidneys are normal in size. Right kidney measures 12.7 cm long; left kidney measures 10.6 cm long. Right renal cortical thickness is 1.2 cm; left renal cortical thickness is 1.5 cm. No jem d masses, hydronephrosis, or nephrolithiasis. Focus of decreased echogenicity is noted in the right kidney measuring 1.4 x 1.4 x 1.4 cm. Bladder: Prevoid volume 80 cc, no change in post void residual. Prostate measures approximately 3.6 x 3.2 x 3.7 cm. Bilateral ureteral jets are identified. Bladder demonstrates an appearance of thickene d wall with suspected trabeculations. It is incompletely distended. Mild perihepatic and perisplenic fluid is noted. Left pleural effusion is present. Cholelithiasis is noted. No identified, but are wall thickening. IMPRESSION: 1. No obstruction. 2. Simple right renal cyst. 3. Bladder thickening with an appearance of trabeculation. It is noted that the bladder is incomplete ly distended possibly related to appearance of thickening. However, cystitis can have a similar imagi ng appearance as well as chronic outlet obstruction and clinical correlation is recommended. The above findings are concordant with preliminary report. Reviewed by: Jacklyn Rodrigez MD on 04/26/2021 9:35 AM PDT Approved by: Jacklyn Rodrigez MD on 04/26/2021 9:35 AM PDT Station ID: [id number]
[2021-04-26] MEDS: HEPARIN 5,000 UNIT/ML VIAL SUBQ SCH ×2 (10:44→20:12)
[2021-04-26] MEDS ORDERED: PROPOFOL 1000 MG/100 ML 1,000 MG/100 ML BOTTLE IV ONE (10:51)
[2021-04-26] MEDS ORDERED: LIDOCAINE-MPF 2% 5 ML VIAL ONE (10:51)
--- NOTE | 2021-04-26 11:00 | HISTORY & PHYSICAL EXAMINATION ---
Chief Complaint - Chief Complaint Chief Complaint: trouble swallowing and pain on swallowing History of Present Illness - History Obtained From Records Reviewed: yes History obtained from: pt Exam Limitations: none - History of Present Illness HPI Comment/Other: He reports 6 weeks of trouble swallowing and pain on swallowing. He believes the problems to be back of mouth/ throat area. History - Past Medical History Cardiovascular: reports: None Respiratory: reports: COPD (denies SOB), Pneumonia, Other Endocrine/Autoimmune: reports: None GI: reports: None, Other (difficulty swallowing, 40 lbs weight loss over last 2 months) : reports: None HEENT: reports: Chronic hearing loss Psych: reports: None Musculoskeletal: reports: None Derm: reports: None MRSA Hx?: No Other Past Medical History: acute kidney injury(cr 8.2) - Past Surgical History /TOUR COORDINATOR: reports: Other (Patient had a biopsy of his right testicle) - Family & Social History Family History: Mother: , Cancer (Mother from esophageal cancer), Father: , COPD/Emphysema, Sister: CAD, Hyperlipidemia, Hypertension, Brother: Family History Comment/Other: Patient report his father at age 57 from COPD complication. His mother at the age 91 from lung cancer. both were heavy smoke Social History Notes: Patient reported he quit cigarette smoking 2 years ago. He denies alcohol or drug issue. - Substance History Use: Uses substance without health or social issues: NONE - POLST Patient has POLST: No POLST Status: DNR Meds/Allgy - Home Medications Home Medications: Ambulatory Orders Medication Instructions Recorded Confirmed Albuterol Sulfate [Proair 90 mcg IH Q4HR PRN #1 aer.pow.ba 10/29/17 04/25/21 Respiclick] Fluticasone/Salmeterol [Advair 1 each IH BID #1 blst.w.dev 10/29/17 04/25/21 250-50 Diskus] - Allergies Allergies/Adverse Reactions: Allergies Allergy/AdvReac Type Severity Reaction Status Date / Time tetanus and diphtheria Allergy Hives Verified 04/25/21 10:11 toxoids Review of Systems - Other Findings Other Findings: 10 pt ros as above admitted with renal failure 40 lb weight loss otherwise unremarkable Exam - Vital Signs Reviewed Vital Signs: Yes Vital Signs: Vital Signs x48h Temp Pulse Pulse Resp BP Pulse Ox 04/26/21 07:33 36.6 C 95 16 133/64 H 97 04/26/21 07:20 94 16 04/26/21 05:00 36.3 C L 90 16 130/63 97 - Physical Exam General Appearance: positive: No acute distress, Alert Eyes Bilateral: positive: PERRL, EOMI, No scleral icterus Neck: positive: No JVD Respiratory: positive: No respiratory distress, Breath sounds nml, Other (decreased) Cardiovascular: positive: Regular rate & rhythm Abdomen: positive: Non-tender, No distention Neurologic/Psychiatric: positive: Oriented x3 Conclusion/Plan - Problem List (1) Esophageal thickening Conclusion/Plan: Dysphagia and abnormal esophagus on imaging. plan EGD. parq held and consent obtained. He may need ENT evaluation as well. This is discussed with him. - Lab Results Lab results reviewed: Yes Fish Bones: 04/26/21 06:03 04/26/21 06:03
--- NOTE | 2021-04-26 11:41 | OPERATIVE REPORT ---
Operative Report - General Admit Date: 04/25/21 Procedure Date: 04/26/21 Planned Procedure: EGD Pre-Op Diagnosis: Dysphagia and odynophagia Procedure Performed: EGD with biopsies Post Op Diagnosis: White exudate esophagus and mild nodularity GE junction - Procedure Note Primary Surgeon: Aneta Serna md Anesthesia Technique: MAC Pathology: random biopsies esophagus and biopsies GE junction nodularity Estimated Blood Loss (mL): 0 Indications: trouble swallowing and pain on swallowing Findings: White exudate esophagus and nodularity GE junction with normal appearing mucosa. White exudate and irritation larynx. Recommend ENT evaluation/ consult
[2021-04-26] MEDS ORDERED: guaiFENesin 600 MG TABLET PO SCH (12:00)
--- NOTE | 2021-04-26 12:22 | ANESTHESIA POST OP EVALUATION ---
Anesthesia Post Eval - Post Anesthesia Eval Vitals: Last Vital Signs Temp 36.4 C L 04/26/21 11:37 Pulse 117 H 04/26/21 11:37 Resp 16 04/26/21 11:37 BP 125/65 04/26/21 11:37 Pulse Ox 98 04/26/21 11:37 CV Function Including HR & BP: Stable Pain Control: Satisfactory Nausea & Vomiting: Negative Mental Status: Baseline Respiratory Status: Airway Patent Hydration Status: Satisfactory Anesthesia Complications: None
[2021-04-26] MEDS ORDERED: MAGIC MOUTHWASH (NYSTATIN) 120 ML BOTTLE PO PRN (16:19)
--- NOTE | 2021-04-26 16:23 | PROVIDER PROGRESS NOTE ---
Assessment/Plan - Problem List (1) Rula esophagitis Assessment/Plan: 04/26 Patient's EGD reveal white exudate esophagus, which likely has rula esophagitis, caused pt pain on swallowing. pt used inhaler of steroid for Pt's hx of severe COPD. pt also had severe malnutrition, all can caused pt has immune compromised, and opportunistic infection with Candide. we will check HIV also. order Nystatin PO solution, magic mouth solution, full liqid diet, conservation planner consult. (2) Acute kidney failure Conclusion/Plan: 04/26 pt report he had about total 1000cc urine on last night, he still make urine, his creatinine and BUN has slowly improved. Patient had a normal range potassium, sodium, magnesium serum concentration. US of kidney reveals No obstruction, simple right renal cyst. We will also check urinalysis, Bladder scale. Continue intravenous IV fluids, and lab test. pt may followup with professional shopper as out-pt if pt continue improved and make urine. Patient had a creatinine 8.2, BUN 112. Creatinine was 2.6 reported 2 weeks ago. Patient reported he had significantly reduced intake of fluids in the home, Patient given 1 L of normal saline, patient creatinine down from 8.7 to 8.2. Patient report he is willing to have dialysis if needed.We will daily seed analysis laboratory assistant, intravenous IV fluids, Precaution fluid overloaded. (3) Dysphagia Conclusion/Plan: 04/26 improved. pt ate 75% of his diet. it is likely caused by rula esophagitis, continue Nystatin PO solution, magic mouth solution, full liqid diet, conservation planner consult Patient reported he had difficult swallow for almost 2 months. He had signifi cantly reduced intake of fluids and food. CT of neck reveal the wall thickening of the upper thoracic esophagus. Patient lost about 40 pounds in this 2 months. ER already called general surgeon, we plan to have EGD for patient tomorrow. Protonix intravenous. NPO now. (4) COPD (chronic obstructive pulmonary disease) Conclusion/Plan: Patient smoking for many years, quit smoking 2 years ago, patient had severe COPD. We will resume patient home breathing treatment, continue DuoNeb, albuterol, Pulmicort. Since patient has not on COPD exacerbation (5) Failure to thrive Conclusion/Plan: Patient lost 40 pounds in 2 months, he has no appetite, he feel pain when he swallows. We will have nutrition consult for patient, will have GI consult for patient plan to have EGD for patient (6)diarrhea pt report he had diarrhea on today. pt has no antibiotics. but pt has severe malnutrition in admission. pt ate 75% his diet on today. order C.Diff - Current Meds Current Meds: Current Medications Generic Name Dose Route Start Last Admin Trade Name Freq PRN Reason Stop Dose Admin Albuterol 2.5 mg 04/25/21 16:43 04/25/21 19:45 Albuterol Neb 2.5 Mg/3 Ml INH 2.5 mg RTQ4H PRN Administration Wheezing Albuterol/Ipratropium 3 ml 04/25/21 16:43 04/26/21 13:45 Ipratropium/Albuterol 3 Ml Neb INH 3 ml Q4HR PRN Administration Wheezing Budesonide 0.5 mg 04/25/21 19:00 04/26/21 07:20 Budesonide 0.5 Mg/2 Ml Neb INH 0.5 mg RTBID CHARLES Administration Formoterol Fumarate 20 mcg 04/25/21 19:00 04/26/21 07:20 Formoterol Fumarate Neb 20 Mcg/2 Ml INH 20 mcg RTBID CHARLES Administration Guaifenesin 600 mg 04/26/21 12:00 04/26/21 13:48 Guaifenesin 600 Mg Tablet PO 600 mg DAILY CHARLES Administration Heparin Sodium (Porcine) 5,000 unit 04/25/21 21:00 04/26/21 10:44 Heparin 5,000 Unit/Ml Vial SUBQ 5,000 unit BID CHARLES Administration Sodium Chloride 1,000 mls @ 200 mls/hr 04/26/21 11:00 04/26/21 11:33 Normal Saline 0.9% IV 200 mls/hr .Q5H CHARLES Administration Pantoprazole Sodium 40 mg 04/25/21 18:00 04/26/21 06:00 Pantoprazole 40 Mg Vial IVP 40 mg QDAC CHARLES Administration Sodium Chloride 10 ml 04/25/21 17:00 04/26/21 15:42 Sodium Chloride Flush 0.9% 10 Ml Syringe IVP Not Given 0100,0900,1700 CHARLES - Lab Result Fish Bone Diagrams: 04/26/21 06:03 04/26/21 16:06 - Additional Planning My Orders: My Active Orders 04/25/21 16:37 Activity Orders [RC] Q2HR IO [RC] IOSHIFT Initiate Bowel Care Protocol [RC] .protocol Initiate Line Care Protocol [RC] QSHIFT Initiate Personal Care Protoco [RC] .protocol Telemetry- [RC] Q4HR Vital Signs [RC] Q4HR Acetaminophen [Tylenol] 650 mg PO Q4HR PRN Ondansetron Inj [Zofran Inj] 4 mg IVP Q6HR PRN Sodium Chloride Flush 0.9% [Normal Saline Flush 0.9%] 10 ml IVP PRN PRN Code Status [OTHERS] Routine Condition of Patient [OTHERS] Routine DVT Prophylaxis [OTHERS] Routine 04/25/21 16:39 IV Insert [RC] .ONCE 04/25/21 16:40 SCDs [RC] QSHIFT 04/25/21 16:43 Albuterol 2.5 mg INH RTQ4H PRN Ipratropium/Albuterol [Duoneb] 3 ml INH Q4HR PRN 04/25/21 17:00 Sodium Chloride Flush 0.9% [Normal Saline Flush 0.9%] 10 ml IVP 0100,0900,1700 04/25/21 17:53 RT [Nebulizer/MDI Tx.] [RC] .Q4PRN RT [Oxygen Therapy] [RC] .PRN 04/25/21 18:00 Pantoprazole [Protonix] 40 mg IVP QDAC 04/25/21 18:15 Code Status [OTHERS] Routine 04/25/21 19:00 Budesonide [Pulmicort] 0.5 mg INH RTBID Formoterol Fumarate [Perforomist] 20 mcg INH RTBID 04/25/21 19:02 Nutrition Consult [CONS] Routine 04/25/21 21:00 Heparin [Heparin Sodium (Porcine)] 5,000 unit SUBQ BID 04/26/21 11:00 Sodium Chloride 0.9% [Normal Saline 0.9%] 1,000 ml IV 200 mls/hr 04/26/21 Lunch Full Liquid Diet [DIET] 04/26/21 12:00 guaiFENesin [Mucinex] 600 mg PO DAILY 04/26/21 16:06 BMP - BASIC METABOLIC PANEL [CHEM] Timed 07/23/21 16:17 Nystatin [Mycostatin] 5 ml PO QID 04/26/21 16:19 Magic Mouthwash (Nystatin) 30 ml PO Q4H PRN 04/26/21 16:21 HIV AB/AG 4TH GEN W/REFLEX [REFLAB] Urgent 04/26/21 17:00 Sevelamer [RenageL] 800 mg PO TIDWM 04/27/21 05:00 BMP - BASIC METABOLIC PANEL [CHEM] DAILYLAB CBC - COMP BLD CT W/AUTO DIFF [HEME] DAILYLAB MAGNESIUM [CHEM] DAILYLAB PHOSPHORUS [CHEM] DAILYLAB 04/28/21 05:00 BMP - BASIC METABOLIC PANEL [CHEM] DAILYLAB CBC - COMP BLD CT W/AUTO DIFF [HEME] DAILYLAB MAGNESIUM [CHEM] DAILYLAB PHOSPHORUS [CHEM] DAILYLAB 04/29/21 05:00 BMP - BASIC METABOLIC PANEL [CHEM] DAILYLAB CBC - COMP BLD CT W/AUTO DIFF [HEME] DAILYLAB MAGNESIUM [CHEM] DAILYLAB PHOSPHORUS [CHEM] DAILYLAB 04/30/21 05:00 BMP - BASIC METABOLIC PANEL [CHEM] DAILYLAB CBC - COMP BLD CT W/AUTO DIFF [HEME] DAILYLAB MAGNESIUM [CHEM] DAILYLAB PHOSPHORUS [CHEM] DAILYLAB 05/01/21 05:00 BMP - BASIC METABOLIC PANEL [CHEM] DAILYLAB CBC - COMP BLD CT W/AUTO DIFF [HEME] DAILYLAB 05/02/21 05:00 BMP - BASIC METABOLIC PANEL [CHEM] DAILYLAB CBC - COMP BLD CT W/AUTO DIFF [HEME] DAILYLAB 05/03/21 05:00 BMP - BASIC METABOLIC PANEL [CHEM] DAILYLAB CBC - COMP BLD CT W/AUTO DIFF [HEME] DAILYLAB Subjective - Subjective Patient Reports: Feeling Better Objective Vital Signs: Vital Signs - 24 hr 04/25/21 04/25/21 04/25/21 17:15 17:58 18:20 Temperature 36.4 C L Heart Rate 92 104 H Heart Rate [ 131 H Brachial] Respiratory 16 23 20 Rate Blood Pressure 147/84 H Blood Pressure 153/78 H [Right Brachial artery] O2 Saturation 98 97 04/25/21 04/25/21 04/25/21 18:21 19:45 20:13 Temperature 36.4 C L 36.4 C L Heart Rate 100 91 Heart Rate [ 92 Brachial] Respiratory 20 16 22 Rate Blood Pressure Blood Pressure 144/63 H [Right Brachial artery] O2 Saturation 100 99 04/26/21 04/26/21 04/26/21 00:22 05:00 07:20 Temperature 36.5 C 36.3 C L Heart Rate 94 Heart Rate [ 92 90 Brachial] Respiratory 18 16 16 Rate Blood Pressure Blood Pressure 137/70 H 130/63 [Right Brachial artery] O2 Saturation 100 97 04/26/21 04/26/21 04/26/21 07:33 11:37 12:54 Temperature 36.6 C 36.4 C L 36.4 C L Heart Rate Heart Rate [ 95 117 H 100 Brachial] Respiratory 16 16 16 Rate Blood Pressure Blood Pressure 133/64 H 125/65 128/65 [Right Brachial artery] O2 Saturation 97 98 96 04/26/21 04/26/21 13:45 15:32 Temperature 36.4 C L Heart Rate 100 Heart Rate [ 96 Brachial] Respiratory 16 14 Rate Blood Pressure Blood Pressure 134/62 H [Right Brachial artery] O2 Saturation 95 Oxygen O2 Source Room air I&O (Last 24 Hrs): Intake and Output Totals x24h 04/24/21 04/25/21 04/26/21 23:59 23:59 23:59 Intake Total 2051 3030.0 Output Total 200 225 Balance 1851 2805.0 General: Alert, Oriented x3, Cooperative HEENT: Atraumatic Neck: Supple Neuro: Alert, Non Focal, Oriented Times 3 Cardiovascular: Regular rate, Normal S1, Normal S2 Respiratory: Chest non-tender, No respiratory distress Abdomen: Normal bowel sounds, Soft, No tenderness Extremities: Normal pulses - Results Results: Laboratory Results WBC 6.2 x10^3/uL (4.8-10.8) 04/26/21 06:03 RBC 3.21 10^6/uL (4.70-6.10) L 04/26/21 06:03 Hgb 8.6 g/dL (14.0-18.0) L 04/26/21 06:03 Hct 28.3 % (42.0-52.0) L 04/26/21 06:03 MCV 88.2 fL (80.0-94.0) 04/26/21 06:03 MCH 26.8 pg (27.0-31.0) L 04/26/21 06:03 MCHC 30.4 g/dL (32.0-36.0) L 04/26/21 06:03 RDW 16.8 % (12.0-15.0) H 04/26/21 06:03 Plt Count 142 10^3/uL (130-450) 04/26/21 06:03 MPV 10.3 fL (7.4-11.4) 04/26/21 06:03 Neut # (Auto) 5.5 10^3/uL (1.5-6.6) 04/26/21 06:03 Lymph # (Auto) 0.3 10^3/uL (1.5-3.5) L 04/26/21 06:03 Taliaferro # (Auto) 0.2 10^3/uL (0.0-1.0) 04/26/21 06:03 Eos # (Auto) 0.1 10^3/uL (0.0-0.7) 04/26/21 06:03 Baso # (Auto) 0.0 10^3/uL (0.0-0.1) 04/26/21 06:03 Absolute Nucleated RBC 0.00 x10^3/uL 04/26/21 06:03 Nucleated RBC % 0.0 /100WBC 04/26/21 06:03 Sodium 142 mmol/L (135-145) 04/26/21 06:03 Potassium 5.0 mmol/L (3.5-5.0) 04/26/21 06:03 Chloride 109 mmol/L (101-111) 04/26/21 06:03 Carbon Dioxide 18 mmol/L (21-32) L 04/26/21 06:03 Anion Gap 15.0 (6-13) H 04/26/21 06:03 BUN 113 mg/dL (6-20) H* 04/26/21 06:03 Creatinine 8.2 mg/dL (0.6-1.2) H* 04/26/21 06:03 Estimated GFR (MDRD) 6 (>89) L 04/26/21 06:03 Glucose 80 mg/dL (70-100) 04/26/21 06:03 POC Whole Bld Glucose 78 mg/dL (70 - 100) 04/26/21 11:32 Calcium 7.7 mg/dL (8.5-10.3) L 04/26/21 06:03 Phosphorus 7.6 mg/dL (2.5-4.6) H 04/26/21 06:03 Magnesium 2.7 mg/dL (1.7-2.8) 04/25/21 11:07 Total Bilirubin 1.1 mg/dL (0.2-1.0) H 04/25/21 11:07 AST 18 IU/L (10-42) 04/25/21 11:07 ALT 14 IU/L (10-60) 04/25/21 11:07 Alkaline Phosphatase 147 IU/L (42-121) H 04/25/21 11:07 Total Protein 6.3 g/dL (6.7-8.2) L 04/25/21 11:07 Albumin 2.5 g/dL (3.2-5.5) L 04/25/21 11:07 Globulin 3.8 g/dL (2.1-4.2) 04/25/21 11:07 Albumin/Globulin Ratio 0.7 (1.0-2.2) L 04/25/21 11:07 Nasal Adenovirus (PCR) NOT DETECTED 04/25/21 16:00 Nasal B. parapertussis DNA (PCR) NOT DETECTED 04/25/21 16:00 Nasal Coronavir 229E PCR NOT DETECTED 04/25/21 16:00 Nasal Coronavir HKU1 PCR NOT DETECTED 04/25/21 16:00 Nasal Coronavir NL63 PCR NOT DETECTED 04/25/21 16:00 Nasal Coronavir OC43 PCR NOT DETECTED 04/25/21 16:00 Nasal Enterovir/Rhinovir PCR NOT DETECTED 04/25/21 16:00 Nasal Influenza B PCR NOT DETECTED 04/25/21 16:00 Nasal Influenza A PCR NOT DETECTED 04/25/21 16:00 Nasal Parainfluen 1 PCR NOT DETECTED 04/25/21 16:00 Nasal Parainfluen 2 PCR NOT DETECTED 04/25/21 16:00 Nasal Parainfluen 3 PCR NOT DETECTED 04/25/21 16:00 Nasal Parainfluen 4 PCR NOT DETECTED 04/25/21 16:00 Nasal RSV (PCR) NOT DETECTED 04/25/21 16:00 Nasal B.pertussis DNA PCR NOT DETECTED 04/25/21 16:00 Nasal C.pneumoniae (PCR) NOT DETECTED 04/25/21 16:00 Corey Human Metapneumo PCR NOT DETECTED 04/25/21 16:00 Nasal M.pneumoniae (PCR) NOT DETECTED 04/25/21 16:00 Nasal SARS-CoV-2 (PCR) NOT DETECTED 04/25/21 16:00 ABX Reporting Has patient been on IV antibiotics over the past 48 hours?: No Current Medications - Current Medications Current Medications: Active Medications Acetaminophen (Acetaminophen 325 Mg Tablet) 650 mg PO Q4HR PRN PRN Reason: Pain 1 to 4 Albuterol (Albuterol Neb 2.5 Mg/3 Ml) 2.5 mg INH RTQ4H PRN PRN Reason: Wheezing Last Admin: 04/25/21 19:45 Dose: 2.5 mg Documented by: Albuterol/Ipratropium (Ipratropium/Albuterol 3 Ml Neb) 3 ml INH Q4HR PRN PRN Reason: Wheezing Last Admin: 04/26/21 13:45 Dose: 3 ml Documented by: Budesonide (Budesonide 0.5 Mg/2 Ml Neb) 0.5 mg INH RTBID CHARLES Last Admin: 04/26/21 07:20 Dose: 0.5 mg Documented by: Formoterol Fumarate (Formoterol Fumarate Neb 20 Mcg/2 Ml) 20 mcg INH RTBID CHARLES Last Admin: 04/26/21 07:20 Dose: 20 mcg Documented by: Guaifenesin (Guaifenesin 600 Mg Tablet) 600 mg PO DAILY [facility] Last Admin: 04/26/21 13:48 Dose: 600 mg Documented by: Heparin Sodium (Porcine) (Heparin 5,000 Unit/Ml Vial) 5,000 unit SUBQ BID [facility] Last Admin: 04/26/21 10:44 Dose: 5,000 unit Documented by: Sodium Chloride (Normal Saline 0.9%) 1,000 mls @ 175 mls/hr IV .Q5H43M [facility] Multi-Ingredient Mouthwash/Gargle (Magic Mouthwash (Nystatin) 120 Ml Bottle) 30 ml PO Q4H PRN PRN Reason: Mouth Sore Pain Nystatin (Nystatin 587936 Units/5 Ml Udc) 5 ml PO QID [facility] Last Admin: 04/26/21 17:04 Dose: Not Given Documented by: Ondansetron HCl (Ondansetron 4 Mg/2 Ml Vial) 4 mg IVP Q6HR PRN PRN Reason: Nausea / Vomiting Pantoprazole Sodium (Pantoprazole 40 Mg Vial) 40 mg IVP QDAC [facility] Last Admin: 04/26/21 06:00 Dose: 40 mg Documented by: Saccharomyces Boulardii (Saccharomyces Boulardii 250 Mg Capsule) 250 mg PO BIDWM [facility] Sevelamer HCl (Sevelamer 800 Mg Tablet) 800 mg PO TIDWM [facility] Last Admin: 04/26/21 16:25 Dose: 800 mg Documented by: Sodium Chloride (Sodium Chloride Flush 0.9% 10 Ml Syringe) 10 ml IVP PRN PRN PRN Reason: NEEDED PER PROVIDER ORDERS Sodium Chloride (Sodium Chloride Flush 0.9% 10 Ml Syringe) 10 ml IVP 0100,0900,1700 [facility] Last Admin: 04/26/21 15:42 Dose: Not Given Documented by:
[2021-04-26] MEDS: NYSTATIN 500000 UNITS/5 ML UDC PO SCH ×3 (16:25→20:12)
[2021-04-26 16:32] LABS: CALCIUM 7.5 mg/dL (8.5-10.3); POTASSIUM 4.5 mmol/L (3.5-5.0)
[2021-04-26] MEDS ORDERED: SEVELAMER 800 MG TABLET PO SCH (17:00)
[2021-04-26] MEDS ORDERED: SACCHAROMYCES BOULARDII 250 MG CAPSULE PO SCH (17:05)
[2021-04-26] MEDS: FLUCONAZOLE 200 MG/100 ML 100 ML IV SCH ×2 (20:10→21:22)
[2021-04-26 23:08] LABS: BILIRUBIN,URINE NEGATIVE (NEGATIVE); GLUCOSE, URINE (UA) NEGATIVE (NEGATIVE); KETONES,URINE (UA) NEGATIVE (NEGATIVE); LEUKOCYTE ESTERASE, URINE NEGATIVE (NEGATIVE); NITRITE,URINE NEGATIVE (NEGATIVE); OCCULT BLOOD,URINE MODERATE (NEGATIVE); PROTEIN,URINE 30 mg/dL (NEGATIVE); UROBILINOGEN,URINE 0.2 (NORMAL) E.U./dL (NORMAL)
[2021-04-26 23:09] LABS: CLARITY,URINE HAZY (CLEAR)
[2021-04-26 23:17] LABS: BACTERIA,URINE None Seen /HPF (None Seen); SQUAMOUS EPITHELIAL CELL,UR NONE SEEN (<= Few)
[2021-04-27] MEDS: SODIUM CHLORIDE FLUSH 0.9% 10 ML SYRINGE IVP SCH (00:07)
[2021-04-27] MEDS: IPRATROPIUM/ALBUTEROL 3 ML NEB INH PRN ×2 (01:43→05:58)
[2021-04-27] MEDS ORDERED: ADENOSINE 6 MG/2 ML VIAL IVP ONE ×2 (02:05→02:17)
[2021-04-27] MEDS ORDERED: METOPROLOL 5 MG/5 ML VIAL IVP STA ×2 (02:28→03:02)
[2021-04-27] MEDS ORDERED: FUROSEMIDE 40 MG/4 ML VIAL IVP STA (02:33)
--- NOTE | 2021-04-27 02:44 | PROVIDER PROGRESS NOTE ---
Flight Engineer Inspector Note - Flight Engineer Inspector Note Flight Engineer Inspector Note: I was called to bedside as the patient was not complaining of dyspnea and was noted to be hypoxic with oxygen saturations in the low 80s on room air. He was placed on 7 L of oxygen with improvement to the high 80s and low 90s. His heart rate is also noted to be in the 180s when it was previously in the 100s to 110s and the rhythm was sinus tachycardia. The patient had bilateral crackles on exam without any lower extremity edema. He was tachycardic with what appeared to be irregular rhythm. A stat chest x-ray and EKG were obtained. EKG was consistent with SVT. His chest x-ray appeared to show pulmonary edema which was new compared to the prior chest x-ray. He had been receiving IV fluids for his acute renal failure and he has been oliguric. The IV fluids were discontinued. He was given 6 mg of adenosine without improvement in his heart rate. This was followed by 12 mg of adenosine and his heart rate did briefly decreased to the 130s which appeared to be sinus tachycardia but then it increased again to the 180s. He was then given 5 mg of Lopressor IV and his heart rates have improved to the 110s once again. Repeat labs have been ordered including BMP and BNP and these are pending. Given the pulmonary edema on imaging and his oliguric acute kidney injury, I have ordered for 60 mg of Lasix to be administered. I did discuss with the patient that if there is no improvement in his urine output and if he remains hypoxic then we will likely need to transfer him to a higher level of care for consideration of dialysis and he is agreeable to this. We will continue to monitor him for the time being but I suspect he will likely need transfer to higher level of care.
[2021-04-27 03:05] LABS: BASOPHILS % (AUTO) 0.1 %; EOSINOPHILS # (AUTO) 0.1 10^3/uL (0.0-0.7); EOSINOPHILS % (AUTO) 0.5 %; HCT - HEMATOCRIT 32.4 % (42.0-52.0); HGB - HEMOGLOBIN 9.7 g/dL (14.0-18.0); LYMPHOCYTES # (AUTO) 0.6 10^3/uL (1.5-3.5); MEAN CORPUSCULAR HEMOGLOBIN 27.3 pg (27.0-31.0); MEAN CORPUSCULAR HGB CONC 29.9 g/dL (32.0-36.0); MEAN CORPUSCULAR VOLUME 91.3 fL (80.0-94.0); MEAN PLATELET VOLUME 10.4 fL (7.4-11.4); MONOCYTES # (AUTO) 0.4 10^3/uL (0.0-1.0); MONOCYTES % (AUTO) 2.5 %; NEUTROPHILS # (AUTO) 13.2 10^3/uL (1.5-6.6); NEUTROPHILS % (AUTO) 91.6 %; PLT - PLATELET COUNT 236 10^3/uL (130-450); RED BLOOD COUNT 3.55 10^6/uL (4.70-6.10); WHITE BLOOD COUNT 14.4 x10^3/uL (4.8-10.8)
[2021-04-27 03:18] LABS: CALCIUM 7.4 mg/dL (8.5-10.3); CREATININE 8.1 mg/dL (0.6-1.2); MAGNESIUM 2.4 mg/dL (1.7-2.8); PHOSPHORUS 8.9 mg/dL (2.5-4.6); POTASSIUM 5.4 mmol/L (3.5-5.0)
--- NOTE | 2021-04-27 03:43 | DISCHARGE SUMMARY ---
"Discharge Summary Admit Date: 04/25/21 Discharge Date: 04/27/21 Discharging Provider: Jake Cox Primary Care Provider: Ramu Mccollum Code Status: Do Not Attempt Resuscitation Condition at Discharge: Critical Discharge Disposition: 02 Transfer Acute Care Hosp Discharge Facility Name: [facility] - DIAGNOSES Admission Diagnoses: Dysphagia Acute kidney failure COPD Failure to thrive Discharge Diagnoses with Status of Each Condition: Acute renal failure - ongoing. Acute respiratory failure with hypoxia - ongoing. SVT - improved. Suspected CHF - ongoing. Rula esophagitis - ongoing. Elevated troponin - ongoing. Severe protein calorie malnutrition - stable. COPD - stable. - HPI History of Present Illness: H&P per ARUNA CaldwellP: This is a 75-year-old gentleman with medical significant history of COPD who present ER complain of difficult to swallowing food and loss of appetite. pt report he has had trouble of swallowing over the last two months, loss of appetite. Pt reports he was unable to clear throat. He report he feels like everything he swallowd was stuck around his neck. he feel pain when he force swallowing. He report he had much reduced intake of water and food. he report he had weight loss of about 40 pounds in about two months. he report he quit smoking [address] of the neck And the chest reveals the wall thickening of the upper thoracic esophagus, Severe centrilobular emphysema, No cervical adenopathy identified, Stable 9 mm left lower lobe pulmonary nodule, Bibasilar bronchiectasis. Routine laboratory tests that show patient had creatinine 8.2, BUN 112 after pt had one liter of IVF in ER. Discussed the care goal with patient, patient request DNR. - CONSULTS | PROCEDURES Consultations: General Surgery Procedures: EGD on April 26 showed nodularity at the GE junction with normal-appearing mucosa. Cold forcep biopsy taken. White exudate esophagus otherwise normal- appearing esophagus. Random cold forcep biopsies taken. EGD otherwise normal. White exudate and irritated appearing larynx. General surgery recommends ENT consult. - HOSPITAL COURSE Hospital Course: The patient was admitted to the floor for acute renal failure which was felt to be related to decreased oral intake from his ongoing dysphagia. He was treated with IV fluids with slight improvement in his renal function. His creatinine had decreased to 8.0 from 8.7. He had a retroperitoneal ultrasound which did not show evidence of obstruction or hydronephrosis. He underwent EGD the following day which was concerning for Rula esophagitis. There is also a note of white exudate in his larynx and general surgery had recommended an ENT consult. He was started on fluconazole for the Rula esophagitis and a clear liquid diet as tolerated. He had clinically been improving until the company pilot of April 27. He went into SVT with a heart rate in the 180s. He was then noted to be hypoxic requiring 6 L of oxygen to maintain a saturation in the high 80s. A chest x-ray was obtained which was concerning for pulmonary vascular congestion and it is likely that he has gone to pulmonary edema from his oliguric acute renal failure. The IV fluids were discontinued and he was given 60 mg of IV Lasix. Repeat labs were obtained which showed his white count had increased to 14,000. His creatinine was also increasing to 8.1 and his BUN to 112. His potassium was 5.4 and he was administered 10 units of IV insulin along with an amp of dextrose. EKG showed SVT and he was given 6 mg of adenosine without improvement in his heart rate. This was followed by 12 mg of adenosine with a brief improvement of his heart rate down to the 120s. The heart rate at that time appeared to be sinus tachycardia. His heart rate inc reased again to the 180s and he was given 5 mg of Lopressor IV. This did improve his heart rate to the 140s and his rhythm remained sinus tachycardia. BNP was checked and this was elevated at 2700. His troponin also came back elevated at 296 which is felt to be demand ischemia from his renal failure. He has no chest pain. The patient does feel improved from a dyspnea standpoint but he remains hypoxic and given his worsening oliguric acute renal failure, it was felt that transfer to a higher of level care was warranted. This was discussed with the patient who understands that he may need hemodialysis. He was agreeable to transfer. I spoke with the [facility] who informed me that [facility] has an ICU bed available. I spoke with Dr. Neal Schwab of the ICU who graciously accepted the patient in transfer. The patient was transferred via ALS. - ALLERGIES Allergies/Adverse Reactions: Allergies Allergy/AdvReac Type Severity Reaction Status Date / Time tetanus and diphtheria Allergy Hives Verified 04/25/21 10:11 toxoids - MEDICATIONS Home Medications: Ambulatory Orders Medication Instructions Recorded Confirmed Albuterol Sulfate [Proair 90 mcg IH Q4HR PRN #1 [email or web address] 10/29/17 04/25/21 Respiclick] Fluticasone/Salmeterol [Advair 1 each IH BID #1 blst.w.dev 10/29/17 04/25/21 250-50 Diskus] - PHYSICAL EXAM AT DISCHARGE General Appearance: positive: Alert, Mild distress Eyes Bilateral: positive: Normal inspection, Conjunctivae nml ENT: positive: ENT inspection nml, Other (Simple mask in place.) Neck: positive: Nml inspection Respiratory: positive: Other (He has bilateral crackles. He is tachypneic but does not appear to be in distress.) Cardiovascular: positive: Tachycardia. negative: No murmur, Systolic murmur Abdomen: positive: Non-tender, No distention. negative: Tenderness Skin: positive: Warm, Dry Extremities: positive: No pedal edema Neurologic/Psychiatric: negative: Disoriented to person, Disoriented to place Physical Exam Other/Comments: Vital Signs - 8 hr 04/26/21 04/27/21 04/27/21 23:58 02:30 02:33 Temperature 36.5 C Heart Rate Heart Rate [ 116 H 196 H Brachial] Respiratory 18 Rate Blood Pressure 114/84 H Blood Pressure 148/82 H 114/84 H [Right Brachial artery] O2 Saturation 93 04/27/21 04/27/21 04/27/21 02:35 02:40 02:55 Temperature Heart Rate Heart Rate [ 140 H 160 H 161 H Brachial] Respiratory Rate Blood Pressure Blood Pressure 129/93 H 150/85 H 128/60 [Right Brachial artery] O2 Saturation 04/27/21 04/27/21 04/27/21 03:00 03:05 03:10 Temperature Heart Rate Heart Rate [ 166 H 146 H 145 H Brachial] Respiratory Rate Blood Pressure 115/73 Blood Pressure 128/78 115/73 122/80 [Right Brachial artery] O2 Saturation 04/27/21 04/27/21 04/27/21 03:15 03:20 05:19 Temperature 36.3 C L Heart Rate Heart Rate [ 146 H 149 H 150 H Brachial] Respiratory 34 H Rate Blood Pressure Blood Pressure 121/72 122/108 H 114/73 [Right Brachial artery] O2 Saturation 90 L 04/27/21 05:59 Temperature Heart Rate 147 H Heart Rate [ Brachial] Respiratory 20 Rate Blood Pressure Blood Pressure [Right Brachial artery] O2 Saturation - LABS Result Diagrams: 04/27/21 03:00 04/27/21 03:00 - DIAGNOSTIC IMAGING Diagnostic Imaging Results: Final report reviewed Diagnostic Imaging Results Comments: Chest CT without contrast on April 25 showed severe centrilobular emphysema. Stable 9 mm subpleural left lower lobe pulmonary nodule. Bibasilar bronchiect asis and minimal left basilar atelectasis. Mild diffuse wall thickening of the upper mid thoracic esophagus. Soft tissue neck CT without contrast showed suggestion of wall thickening of the upper thoracic esophagus. Severe centrilobular emphysema. No cervical adenopathy identified. Study is somewhat limited by lack of intravenous contrast. Retroperitoneum ultrasound on April 25 showed no evidence of obstruction. Simple right renal cyst noted. Bladder thickening with an appearance of trabeculation. It is noted that the bladder is incompletely distended postulated to appearance of thickening. However, cystitis can have a similar imaging appearance as well as chronic outlet obstruction and clinical correlation is recommended. - TIME SPENT Time Spent in Discharge (Minutes): 48"
[2021-04-27] MEDS ORDERED: INSULIN REGULAR HUMAN 300 UNIT/3 ML VIAL IVP ONE (04:12)
[2021-04-27] MEDS ORDERED: DEXTROSE 50% ABBOJECT 25 GM/50 ML SYRINGE IVP ONE (04:12)
[2021-04-27 05:23] VITALS: BP 114/73
[2021-04-27] MEDS: FORMOTEROL FUMARATE NEB 20 MCG/2 ML INH SCH (05:57)
[2021-04-27] MEDS: BUDESONIDE 0.5 MG/2 ML NEB INH SCH (05:58)
[2021-04-27] MEDS ORDERED: FLUCONAZOLE 200 MG/100 ML 100 ML IV SCH (09:00)
--- NOTE | 2021-04-27 10:04 | XRAY Report ---
PROCEDURE: Chest 1 View X-Ray INDICATIONS: Hypoxia. Dyspnea. TECHNIQUE: One view of the chest was acquired. COMPARISON: 04/25/2021 FINDINGS: Surgical changes and devices: None. Lungs and pleura: Developing opacities are seen at both lung bases, right worse than left. These are more prominent than on the 04/25/2021 examination. No pneumothorax or large pleural effusion can be s een. Mediastinum: Mediastinal contours appear normal. Heart size is normal. Bones and chest wall: No suspicious bony lesions. Age-appropriate degenerative changes are seen. Overlying soft tissues appear unremarkable. IMPRESSION: Bilateral infiltrates are seen at the lung bases (right worse than left) which are worse than on the 04/25/2021 examination. Note: No significant discrepancy from the preliminary report. Reviewed by: Lamin Wilder MD on 04/27/2021 9:02 AM KOFFI Approved by: Lamin Wilder MD on 04/27/2021 9:02 AM KOFFI Station ID: [id number]
[2021-04-27 13:31] LABS: HIV AG/AB 4TH GEN NON-REACTIVE (NON-REACTIVE)
== END 2021-04-27 06:16 | disposition short-term general hospital (02) | DRG 682 ==
LOC: ED 09:40 → MS2 16:17
PROVIDERS: ADMIT Nurse Practitioner Gerontology; ATTEND Internal Medicine
PROC: 0DB58ZX Excision of Esophagus, Via Natural or Artificial Opening Endoscopic, Diagnostic (ICD-10-PCS; 2021-04-26)
PROC: 0DB48ZX Excision of Esophagogastric Junction, Via Natural or Artificial Opening Endoscopic, Diagnostic (ICD-10-PCS; principal; 2021-04-26 11:00)
DX: J44.1 Chronic obstructive pulmonary disease with (acute) exacerbation (principal); E86.0 Dehydration; R53.1 Weakness; K22.8 Other specified diseases of esophagus; R63.4 Abnormal weight loss; N17.9 Acute kidney failure, unspecified; J96.01 Acute respiratory failure with hypoxia; E43 Unspecified severe protein-calorie malnutrition; F17.200 Nicotine dependence, unspecified, uncomplicated; E86.1 Hypovolemia; Z20.822 Contact with and (suspected) exposure to COVID-19; I47.1 Supraventricular tachycardia; B37.81 Candidal esophagitis; Z68.1 Body mass index [BMI] 19.9 or less, adult; R13.10 Dysphagia, unspecified; I50.9 Heart failure, unspecified; R77.8 Other specified abnormalities of plasma proteins; J43.9 Emphysema, unspecified; R63.0 Anorexia; Z87.891 Personal history of nicotine dependence; Z66 Do not resuscitate; R62.7 Adult failure to thrive; R19.7 Diarrhea, unspecified
CPT/HCPCS: 36415; 70490; 71045; 71250; 76770; 80048; 80053; 81001; 83735; 83880; 84100; 84484; 85025; 87631; 93005; 94640; 96365; 99285; A9270; G0475; J0153; J1815; J3411; J7040; J7626; 0202U; 87086; 87389; 87493